=== PATIENT | female | born 1945 | race Caucasian/White ===

== ENCOUNTER 2017-08-11 16:25 | Inpatient (IN) | payer MEDICARE, SELFPAY | END 2017-08-14 11:10 | disposition home or self-care (01) | DRG 195 | PROVIDERS: Admitting Provider Family Medicine; Emergency Provider Emergency Medicine; Visit Provider Family Medicine | DX: J18.9 Pneumonia, unspecified organism (principal); I10 Essential (primary) hypertension | CPT/HCPCS: 36415; 71020; 71260; 74176; 80048; 80053; 81001; 82803; 83605; 83690; 83880; 84484; 85025; 85378; 87040; 87070; 87205; 94640; 94760; 96365; 96375; 99285; G0238; J0456; J1956; J2405; Q9967 ==

== ENCOUNTER → 2017-08-26 09:13 | Outpatient (CLI) | payer MEDICARE, SELFPAY ==
--- NOTE | 2017-08-26 09:25 | XR_ITS ---
XR chest 2V HISTORY: ITS.REASON: PNEUMONIA OF RT LOWER LOBE ORDERING PHYSICIAN: Lexx Barlow MD PATIENT AGE: 72 years COMPARISON: 08/11/2017 FINDINGS: Right hemidiaphragm is elevated as before. There remains consolidation/collapse of the right middle and right lower lobe. Left lower lobe atelectatic changes are also noted and appears slightly worse compared to the previous exam. Upper lobes are clear. There is moderate wedging of T7 with loss of height anteriorly of approximately 50%. Incidental vascular calcification noted in the right carotid. IMPRESSION: 1. Continued right lower and right middle lobe collapse with elevated right hemidiaphragm. 2. Left lower lobe atelectasis. 3. Moderate to severe wedge compression changes at T7
== END ==
PROVIDERS: PCP Family Medicine; Visit Provider Family Medicine
DX: J18.1 Lobar pneumonia, unspecified organism (principal)
CPT/HCPCS: 71046

== ENCOUNTER 2017-11-24 10:00 | Outpatient (RCR) | payer MEDICARE, SELFPAY | END 2017-11-24 10:01 | disposition home or self-care (01) | LOC: PT 10:00 | PROVIDERS: PCP Family Medicine | DX: M51.36 Other intervertebral disc degeneration, lumbar region (principal) | CPT/HCPCS: 97010; 97014; 97035; 97110; G0283 ==

== ENCOUNTER 2019-09-04 15:40 | Observation (INO) ==
--- NOTE | 2019-09-04 15:59 | Emergency Department Note ---
ED Disposition Clinical Impression: Acute exacerbation of chronic obstructive airways disease Acute respiratory failure Qualifiers: Respiratory failure complication: hypoxia and hypercapnia Qualified Code(s): J96.01 - Acute respiratory failure with hypoxia Disposition: Admitted As Inpatient Condition on Discharge: Fair Referrals: Provider,Referral, [Primary Care Provider] - - Critical Care Critical Care Time: No Attestation: On , the high probability of a clinically significant, sudden or life threatening deterioration of the following system(s) required my full and direct attention, intervention and personal management. The time I documented below is in addition to time spent performing reported procedures but includes the following listed in this critical care notation. Medical Decision Making - Medical Records Medical records reviewed: Yes: I reviewed the patient's medical records. - [place] Inquiry Pt receiving controlled substance: No Vital Signs: 09/04/19 15:51 Temperature 98.4 F Temperature Source Oral Pulse Rate [Right Radial] 90 Respiratory Rate 18 Blood Pressure [Right Arm] 157/83 H Blood Pressure Mean [Right Arm] 107 02 Sat by Pulse Oximetry 79 L Oxygen Delivery Method Room Air - Lab Data Lab Results 09/04/19 14:28: WBC 12.0 H D, RBC 5.08, Hgb 14.7, Hct 46.7, MCV 92.0, MCH 28.9, MCHC 31.4 L, RDW 13.3, Plt Count 207, MPV 7.2 L, Neut % (Auto) 87.5 H, Lymph % (Auto) 8.8 L, [place] % (Auto) 2.7, Eos % (Auto) 0.7, Baso % (Auto) 0.3, Neut # (Auto) 10.5 H, Lymph # (Auto) 1.1, [place] # (Auto) 0.3, Eos # (Auto) 0.1, Baso # (Auto) 0.0 09/04/19 14:28: Sodium 136, Potassium 4.3, Chloride 98, Carbon Dioxide 34 H, Anion Gap 8.3, BUN 19 H D, Creatinine 1.06 H D, Estimated Creat Clear 75, Estimated GFR 50 L, Est GFR ( Amer) 61 D, Glucose 190 H, Calcium 9.1 09/04/19 15:57: Specimen Source Right brachial, ABG pH 7.34 L, ABG pCO2 62.8 H, ABG pO2 50.1 L, ABG HCO3 33.4 H, ABG Total CO2 35.4 H, ABG O2 Saturation 86 L*, ABG Base Excess 7.7 H, Angel Test acceptable Result diagrams: 09/04/19 14:28 09/04/19 14:28 Orders (Tests/Meds): ORDERS Category Date Time Status Chest XR -- portable [XR chest portable] Stat Exams 09/04/19 16:01 Taken Complete Blood Count Auto Diff Stat Lab 09/04/19 14:28 Results - Radiology Data #1 Image(s): Chest Image Reviewed: Yes I reviewed the patient's radiology image Elevation of the right hemidiaphragm, possible pneumonia right lower lobe?, Atelectasis left lower lobe. This is per my read, radiology over read pending. Medical Decision Narrative: Patient is asymptomatic at this time with no shortness of breath. Her ABG does suggest some hypercarbia and hypoxia. She is placed on 2 L of oxygen. Her chest x-ray shows elevation of the right hemidiaphragm, possible right-sided pneumonia, though patient does not describe any recent illnesses or new cough or fever. She was already given Rocephin today in her doctor's office in addition to a steroid. She is wheezing on exam and I suspect acute COPD exacerbation on top of some chronic hypoxia and hypercarbia. She will need to be admitted for further investigation into her long-term oxygen requirements. I discussed this case with Dr. Moore, on-call for Dr. Barlow. General Adult HPI - General Stated complaint: Low oxygen Time Seen by Provider: 09/04/19 15:56 Mode of Arrival: Ambulatory Source of Information: Patient, Relative Limitations: No Limitations - History of Present Illness HPI narrative: This is a 74-year-old female with a past medical history significant for COPD, hypertension, HLD who presents to the emergency department for evaluation of low oxygen saturation measured at her doctor's office today. She was there having an evaluation for her H. pylori and has no acute respiratory complaints now including no new shortness of breath or cough and no fever over the last several days. No chest pain. She has abdominal pain that is not new and has been attributed to her H. pylori. She was evaluated here 3 days ago for abdominal pain with a negative work-up. She was not at her doctor's office today for any respiratory complaints, but during taking her vital signs it was found that she was 88% on room air. There she was given a nebulizer treatment which allowed her oxygen saturations to improve to 93%. Was also given a injection of Rocephin and a steroid. Patient and [id number] tell me that she has always had varying oxygen levels and cannot ever seem to get a consistent value. Patient states she used to be on oxygen several years ago, but it was only for short-term therapy. Speaking to nursing staff who saw her on Tuesday, they report the same that her oxygen saturation level would vary significantly and a reliable, consistent number was difficult to obtain. Patient is asymptomatic with no shortness of breath at this time. - Related Data Home Medications Medication Instructions Recorded Confirmed Amlodipine Besylate/Benazepril 1 each PO DAILY 09/02/19 09/02/19 [Amlodipine-Benazepril 10-20 mg] Previous Rx's Medication Instructions Recorded levoFLOXacin [Levaquin 500mg 500 mg PO DAILY #7 tab 09/02/19 tab] Allergies Allergy/AdvReac Type Severity Reaction Status Date / Time No Known Allergies Allergy Verified 09/04/19 15:58 [facility] History - Hepatitis A Screen Attestation statement:: This patient has been screened for Hepatitis A risk factors. I have reviewed the patient's past medical history: Yes Medical History: Reports:: Cancer (skin), Chronic Obstructive Pulmonary Disease (COPD), Hyperlipidemia, Hypertension - Social History Alcohol Intake: never Occupational Status: retired ROS Obtained: Yes All systems reviewed & no additional complaints Physical Exam - General General appearance: alert, in no apparent distress - Head Head exam: atraumatic, normocephalic - ENT ENT exam: Present: normal exam, mucous membranes moist - Neck Neck exam: Present: normal inspection, trachea midline - Respiratory Respiratory exam: Present: wheezes, other (Speaks in complete sentences, no tachypnea). Absent: respiratory distress - Cardiovascular Cardiovascular exam: Present: regular rate, normal rhythm. Absent: JVD - Abdominal Exam Abdominal exam: Present: soft. Absent: distention, tenderness - Neurological Exam Neurological exam: Present: alert, oriented X3 - Skin Skin exam: Present: warm, dry, intact, normal color
[2019-09-04 16:08] LABS: ABG Base Excess 7.7 mmol/L (-2.4-2.3); ABG HCO3 33.4 mmhg (22.0-26.0); ABG Oxygen Saturation 86 % (90-100); ABG PO2 50.1 mmhg (80-100); ABG TCO2 35.4 mmhg (23-27)
[2019-09-04 16:12] LABS: Allen's Test acceptable
[2019-09-04 16:14] LABS: ABG PCO2 62.8 mmhg (35.0-45.0)
[2019-09-04 16:39] LABS: Basophils % 0.3 % (0.1-2.0); Eosinophils # 0.1 K/mm3 (0.0-0.4); Eosinophils % 0.7 % (0.1-12.0); Hematocrit 46.7 % (37.0-47.0); Hemoglobin 14.7 g/dL (12.2-16.2); Lymphocytes # 1.1 K/mm3 (0.7-4.5); Lymphocytes % 8.8 % (10-50); Mean Corpuscular HGB Conc 31.4 g/dL (31.8-35.4); Mean Platelet Volume 7.2 fl (7.4-10.4); Monocytes # 0.3 K/mm3 (0.1-1.0); Monocytes % 2.7 % (1.7-9.3); Neutrophils # 10.5 K/mm3 (1.8-7.8); Neutrophils % 87.5 % (37.0-80.0); Platelet Count 207 K/mm3 (142-424); Red Blood Count 5.08 M/mm3 (4.20-5.40); Red Cell Distribution Width 13.3 % (11.5-17.5)
[2019-09-04 16:43] LABS: Anion Gap 8.3 mEq/L (5-15); Calcium 9.1 mg/dL (8.5-10.1)
[2019-09-04 17:28] LABS: Lymphocytes % 13 % (10-50); Monocytes % 5 % (2-9); Neutrophils % 82 % (42-76); RBC Morphology Normal; Total Cells Counted 100
[2019-09-05 06:46] LABS: ABG Base Excess 13.5 mmol/L (-2.4-2.3); ABG HCO3 38.9 mmhg (22.0-26.0); ABG Oxygen Saturation 95 % (90-100); ABG PH 7.36 mmol/L (7.35-7.45)
[2019-09-05 06:47] LABS: Oxygen 2LPM %
[2019-09-05 06:49] LABS: ABG PCO2 70.1 mmhg (35.0-45.0)
--- NOTE | 2019-09-05 07:11 | Pharmacy Consult Notes ---
[facility] Pharmacy VTE Monitoring - Patient Demographics Admission date: 09/04/19 Report Date: 09/05/19 Time: 07:10 Allergies/Adverse Reactions: Patient Allergies No Known Allergies Allergy (Verified 09/04/19 15:58) Height: 1.63 m Weight: 104.128 kg Patient Problems: Current Active Problems Acute respiratory failure (Acute) Acute exacerbation of chronic obstructive airways disease (Acute) - VTE Risk Labs: VTE Related Lab Results Hgb 14.7 g/dL (12.2-16.2) 09/04/19 14:28 Hct 46.7 % (37.0-47.0) 09/04/19 14:28 Plt Count 207 K/mm3 (142-424) 09/04/19 14:28 BUN 19 mg/dL (7-18) H D 09/04/19 14:28 Creatinine 1.06 mg/dL (0.55-1.02) H D 09/04/19 14:28 Estimated Creat Clear 75 mL/min (50-200) 09/04/19 14:28 - Prophylaxis VTE Prophylaxis Ordered?: Yes Types of VTE Prophylaxis: TEDS Knee High Location of Applied Device: Bilateral Lower Extremeties
--- NOTE | 2019-09-05 07:26 | H&P/Discharge Summary ---
General - General Admission date:: 09/04/19 Discharge date: 09/05/19 *Admission Date: 09/04/19 *Chief complaint: "I was sent here by my doctor" *History of present illness: 74-year-old female presented to the emergency department yesterday after being sent to our ER from her primary care physician in [facility]. Patient was seen in this emergency department on September 02 for abdomen and back pain. Patient apparently has a recent diagnosis of H. pylori. Evaluation in the emergency department revealed a urinary tract infection and patient was treated and discharged home. She followed up with her primary care physician located in [place], [place] yesterday. While visiting her primary care physician on routine vital sign assessment it was noted that patient was hypoxic. Patient has a diagnosis of COPD but quit smoking nearly 30 years ago. Patient was told she needed to go to an emergency department and possibly be admitted to the hospital but instead of going to the local hospital in [place] she chose to drive back here to [facility] as she currently lives in [place]. In the emergency department she was hypoxic and felt to be having a mild COPD exacerbation. Home oxygen was being arranged by her primary care provider in [place] but decision was made to admit her to this facility for treatment of COPD exacerbation. Patient was admitted and placed on IV antibiotics and stero ids [facility] History I have reviewed the patient's past medical history: Yes Medical History: Reports:: Cancer (skin), Chronic Obstructive Pulmonary Disease (COPD), Hyperlipidemia, Hypertension Denies:: Diabetes Mellitus Type 1, Diabetes Mellitus Type 2 *Have you ever received a pneumonia vaccine?: No *Have you received a flu vaccine this season?: No - *Social History Educational Level: Completed High School Smoking Status: Former smoker Alcohol Intake: never *Occupational Status:: retired *Travel in the last 8 weeks: None Family Hx:: No significant family history Review of Systems - Constitutional Denies body ache(s), Denies chills, Denies fatigue, Denies fever(s), Denies headache(s), Denies malaise, Denies night sweats, Denies weakness - *Cardiovascular Denies chest pain, Denies chest pain at rest, Denies chest pain with activity - *Respiratory Reports shortness of breath, Reports shortness of breath with activity, Denies chest congestion, Denies cough Exam Vital signs and Labs for Last 24 Hours: Temp Pulse Resp BP Pulse Ox 98.5 F 71 18 150/74 H 90 L 09/05/19 04:00 09/05/19 04:00 09/05/19 04:00 09/05/19 04:00 09/05/19 04:00 Laboratory Results - last 24 hr 09/04/19 14:28: WBC 12.0 H D, RBC 5.08, Hgb 14.7, Hct 46.7, MCV 92.0, MCH 28.9, MCHC 31.4 L, RDW 13.3, Plt Count 207, MPV 7.2 L, Neut % (Auto) 87.5 H, Lymph % (Auto) 8.8 L, [place] % (Auto) 2.7, Eos % (Auto) 0.7, Baso % (Auto) 0.3, Neut # (Au to) 10.5 H, Lymph # (Auto) 1.1, [place] # (Auto) 0.3, Eos # (Auto) 0.1, Baso # (Auto) 0.0, Total Counted 100, Neutrophils % (Manual) 82 H, Lymphocytes % (Manual) 13, Monocytes % (Manual) 5, Platelet Estimate Normal, RBC Morphology Normal 09/04/19 14:28: Sodium 136, Potassium 4.3, Chloride 98, Carbon Dioxide 34 H, A nion Gap 8.3, BUN 19 H D, Creatinine 1.06 H D, Estimated Creat Clear 75, Estimated GFR 50 L, Est GFR ( Amer) 61 D, Glucose 190 H, Calcium 9.1 09/04/19 15:57: Specimen Source Right brachial, ABG pH 7.34 L, ABG pCO2 62.8 H, ABG pO2 50.1 L, ABG HCO3 33.4 H, ABG Total CO2 35.4 H, ABG O2 Saturation 86 L*, ABG Base Excess 7.7 H, Angel Test acceptable 09/05/19 06:00: Specimen Source R brachial, O2 % 2lpm, ABG pH 7.36, ABG pCO2 70.1 H, ABG pO2 77.0 L, ABG HCO3 38.9 H, ABG Total CO2 41.0 H, ABG O2 Saturation 95, ABG Base Excess 13.5 H I & O for Last 24 hours: Intake & Output 0109/03/19 09/04/19 09/05/19 11:59 11:59 11:59 11:59 Intake Total 120 / 120 Output Total 200 / 200 Balance -80 / -80 Weight 229 lb 9 oz - Constitutional no acute distress - *Routine HEENT Exam Head: Present: normocephalic Eye: Present: EOMI, PERRL ENT: Present: mucous membranes moist - *Routine Neck Exam Present: supple, full ROM. Absent: JVD, carotid bruit - *Routine Respiratory Exam Present: CTA bilaterally. Absent: rales, respiratory distress, rhonchi, wheezes, crackles, distant breath sounds, diminished air movement - *Routine Cardiovascular Exam Present: RRR, Normal S1, Normal S2 - *Routine Abdominal Exam Present: soft, normoactive bowel sounds. Absent: tenderness - *Routine Extremities Exam Absent: edema Hospital Course Hospital Course: Patient was admitted and placed on IV antibiotics and steroids and given aerosols. Supplemental oxygen was applied as well. Patient's room air oxygen sats were in the 80s while at rest. With application of oxygen at 2 L/min via nasal cannula patient's O2 sats remained in the 90s. Following morning (September 05) patient's lungs were clear. As patient was already in process of having home oxygen arranged it was felt safe to discharge the patient home. Once it was assured that patient's oxygen has been delivered home patient was allowed to be discharged. Patient will follow-up in my office on Tuesday. Results Labs on day of discharge: Labs from last 24 hours 09/05/19 09/04/19 09/04/19 06:00 15:57 14:28 WBC RBC Hgb Hct MCV MCH MCHC RDW Plt Count MPV Neut % (Auto) Lymph % (Auto) [place] % (Auto) Eos % (Auto) Baso % (Auto) Neut # (Auto) Lymph # (Auto) [place] # (Auto) Eos # (Auto) Baso # (Auto) Total Counted Neutrophils % (Manual) Lymphocytes % (Manual) Monocytes % (Manual) Platelet Estimate RBC Morphology Specimen Source R brachial Right brachial O2 % 2lpm ABG pH 7.36 7.34 L ABG pCO2 70.1 H 62.8 H ABG pO2 77.0 L 50.1 L ABG HCO3 38.9 H 33.4 H ABG Total CO2 41.0 H 35.4 H ABG O2 Saturation 95 86 L* ABG Base Excess 13.5 H 7.7 H Angel Test acceptable Sodium 136 Potassium 4.3 Chloride 98 Carbon Dioxide 34 H Anion Gap 8.3 BUN 19 H D Creatinine 1.06 H D Estimated Creat Clear 75 Estimated GFR 50 L Est GFR ( Amer) 61 D Glucose 190 H Calcium 9.1 09/04/19 14:28 WBC 12.0 H D RBC 5.08 Hgb 14.7 Hct 46.7 MCV 92.0 MCH 28.9 MCHC 31.4 L RDW 13.3 Plt Count 207 MPV 7.2 L Neut % (Auto) 87.5 H Lymph % (Auto) 8.8 L [place] % (Auto) 2.7 Eos % (Auto) 0.7 Baso % (Auto) 0.3 Neut # (Auto) 10.5 H Lymph # (Auto) 1.1 [place] # (Auto) 0.3 Eos # (Auto) 0.1 Baso # (Auto) 0.0 Total Counted 100 Neutrophils % (Manual) 82 H Lymphocytes % (Manual) 13 Monocytes % (Manual) 5 Platelet Estimate Normal RBC Morphology Normal Specimen Source O2 % ABG pH ABG pCO2 ABG pO2 ABG HCO3 ABG Total CO2 ABG O2 Saturation ABG Base Excess Angel Test Sodium Potassium Chloride Carbon Dioxide Anion Gap BUN Creatinine Estimated Creat Clear Estimated GFR Est GFR ( Amer) Glucose Calcium DS: Diagnosis - Discharge Diagnosis (1) Acute exacerbation of chronic obstructive airways disease Status: Acute Discharge Plan - Patient Discharge Instructions ACTIVITY: Continue current activity DIET: continue same diet Patient Instructions: Chronic Obstructive Pulmonary Disease, Respiratory Failure - Follow up Plan Follow up with: Lexx Barlow MD [Staff Physician] - 09/07/19 11:00 am Disposition: Home, Self-[facility] Medications: Home Medications Medication Instructions Recorded Confirmed Type Amlodipine Besylate/Benazepril 1 each PO DAILY 09/04/19 09/04/19 History [Lotrel 10-20 mg Capsule] Budesonide/Formoterol Fumarate 2 puffs IH BID 09/04/19 09/04/19 History [Symbicort 80-4.5 Mcg Inhaler] Meloxicam 7.5 mg PO DAILY 09/04/19 09/04/19 History methylPREDNISolone [Medrol] 4 mg PO DIRECTED #21 pack 09/05/19 Rx Prescriptions/Medication Reconciliation: New methylPREDNISolone [Medrol] 4 mg PO DIRECTED #21 pack Continued Meloxicam 7.5 mg PO DAILY Budesonide/Formoterol Fumarate [Symbicort 80-4.5 Mcg Inhaler] 2 puffs IH BID Amlodipine Besylate/Benazepril [Lotrel 10-20 mg Capsule] 1 each PO DAILY - Problem Reconciliation Problems Reviewed?: Yes
[2019-09-05 07:54] LABS: ABG PH 7.34 mmol/L (7.35-7.45)
== END 2019-09-05 12:46 | disposition home or self-care (01) ==
LOC: ER 15:40 → 2ND 15:40
PROVIDERS: ADMIT Internal Medicine Adolescent Medicine; ATTEND Family Medicine
CPT/HCPCS: 71010; 71045; 80048; 82803; 85007; 85025; 94761; 99284; G0378

== ENCOUNTER → 2020-02-06 10:52 | Outpatient (CLI) | payer MEDICARE, MEDICAID, SELFPAY | PROVIDERS: PCP Family Medicine; Visit Provider Family Medicine | DX: R06.00 Dyspnea, unspecified (principal); R06.01 Orthopnea; R22.43 Localized swelling, mass and lump, lower limb, bilateral; I10 Essential (primary) hypertension | CPT/HCPCS: 93306 ==

== ENCOUNTER 2020-07-31 13:30 | Emergency (ER) | payer MEDICARE, MEDICAID, SELFPAY ==
[2020-07-31 14:00] VITALS: BP 166/75; PULSE 82; RESP 14; TEMP 36.7; O2SAT 98; BMI 42.1
--- NOTE | 2020-07-31 14:21 | HMH.EDUTC ---
[facility] Disposition Clinical Impression: COPD exacerbation, Exposure to COVID-19 virus, Viral syndrome Disposition: Home, Self-Care Condition on Discharge: Good Instructions: Chronic Obstructive Pulmonary Disease, Preventing the Spread of Coronavirus Discharge Instructions Additional Instructions: Drink plenty of fluids. Take tylenol for pain or fever. Return if you begin to have difficulty breathing. Follow up with your regular doctor. GO TO THE ER FOR ANY WORSENING SYMPTOMS Prescriptions: Benzonatate [Tessalon Perle 100mg Cap] 100 mg PO TIDP PRN #30 cap PRN Reason: Cough Transmission Status[id number] Azithromycin [Z-Matheus 250mg Tab*] 250 mg PO UD DOSE PK #6 tab Transmission Status: Received by [id number] Referrals: Lexx Barlow MD [Primary Care Provider] - Time of Disposition: 14:23 Medical Decision Making - Medical Records Medical records reviewed: No: I reviewed the patient's medical records. - [place] Inquiry Pt receiving controlled substance: No Vital Signs: 07/31/20 14:00 07/31/20 14:36 Temperature 98.1 F 98.1 F Temperature Source Oral Pulse Rate 82 Pulse Rate [Right Brachial] 82 Respiratory Rate 14 14 Blood Pressure 166/75 H Blood Pressure [Right Arm] 166/75 H Blood Pressure Mean [Right Arm] 105 Blood Pressure Source [Right Arm] Automatic Cuff Blood Pressure Position [Right Arm] Sitting 02 Sat by Pulse Oximetry 98 Oxygen Delivery Method Nasal Cannula Oxygen Flow Rate (LPM) 3 Orders (Tests/Meds): ORDERS Category Date Time Status Covid-19 Nasal PCR Sendout Luis Routine Lab 07/31/20 13:55 Received [facility] HPI - General Stated complaint: covid test Time Seen by Provider: 07/31/20 14:21 Mode of Arrival: Ambulatory Source of Information: Patient Limitations: No Limitations Description of Symptoms (Recalled from Triage Doc. by RN): PATIENT REQUESTING COVID TEST D/T EXPOSURE; C/O INCREASE SOA. HEENT Symptoms (Recalled from RN notes): No Resp Symptoms (Recalled from RN notes): Yes Skin Symptoms (Recalled from RN notes): No MS Symptoms (Recalled from RN notes): No Functional Status (Recalled from RN notes): WNL - History of Present Illness Provider Complaint: She has been having slightly worse shortness of breath and cough. She has a history of copd. She is on oxygen around the clock at 2 lpm already. - Related Data Home Medications Medication Instructions Recorded Confirmed Amlodipine Besylate/Benazepril 1 each PO DAILY 09/04/19 09/04/19 [Lotrel 10-20 mg Capsule] Budesonide/Formoterol Fumarate 2 puffs IH BID 09/04/19 09/04/19 [Symbicort 80-4.5 Mcg Inhaler] Meloxicam 7.5 mg PO DAILY 09/04/19 09/04/19 Previous Rx's Medication Instructions Recorded methylPREDNISolone [Medrol] 4 mg PO DIRECTED #21 pack 09/05/19 Azithromycin [Z-Matheus 250mg Tab*] 250 mg PO UD DOSE PK #6 tab 07/31/20 Benzonatate [Tessalon Perle 100mg 100 mg PO TIDP PRN #30 cap 07/31/20 Cap] Allergies Allergy/AdvReac Type Severity Reaction Status Date / Time No Known Allergies Allergy Verified 09/04/19 15:58 - Worker's Comp Is this a Worker's Comp case?: No [facility] History - Hepatitis A Screen Drug use history?: No High risk sexual behaviors?: No History of sexually transmitted infection?: No Currently employed?: No Childcare worker?: No Do you have indoor plumbing?: Yes Do you have electricity?: Yes Attestation statement:: This patient has been screened for Hepatitis A risk factors. I have reviewed the patient's past medical history: Yes Medical History: Reports:: Cancer (skin), Chronic Obstructive Pulmonary Disease (COPD), Hyperlipidemia, Hypertension Denies:: Diabetes Mellitus Type 1, Diabetes Mellitus Type 2 - Social History Smoking Status: Former smoker Alcohol Intake: never Occupational Status: other Family Hx:: No significant family history ROS Obtained: Yes All systems reviewed & no additional complaints
[2020-07-31 14:36] VITALS: BP 166/75; PULSE 82; RESP 14; TEMP 36.7; O2SAT 98
[2020-08-02 11:29] LABS: Covid-19 Nasal PCR Sendout Lex POSITIVE
--- NOTE | 2020-08-02 11:40 | PC.NURSE ---
Attempted to call patient with covid results. No answer and no voicemail.
== END 2020-07-31 14:45 | disposition home or self-care (01) ==
PROVIDERS: Emergency Provider Nurse Practitioner Family; PCP Family Medicine
DX: U07.1 COVID-19 (principal); J44.1 Chronic obstructive pulmonary disease with (acute) exacerbation; Z99.81 Dependence on supplemental oxygen; E78.5 Hyperlipidemia, unspecified; I10 Essential (primary) hypertension; Z87.891 Personal history of nicotine dependence; Z79.899 Other long term (current) drug therapy
CPT/HCPCS: G0463; 99201; U0004

== ENCOUNTER 2020-08-04 15:20 | Emergency (ER) | payer MEDICARE, MEDICAID, SELFPAY ==
[2020-08-04 15:21] VITALS: BP 166/69; PULSE 74; RESP 22; TEMP 36.6; O2SAT 95; BMI 44.9
--- NOTE | 2020-08-04 15:44 | XR_ITS ---
PROCEDURE: XR CHEST PORTABLE CLINICAL HISTORY: soa Cough, fever, shortness of air COMPARISON: CR CXR CHEST(2 VIEWS-NOT PORTABLE) from 08/11/[address] [address] CHEST W/ CONTRAST from 08/12/2017 CR CXR2V XR chest 2V from 08/26/2017 CR XR CHEST PORTABLE from 09/04/2019 FINDINGS: Right hemidiaphragm is elevated with right basilar atelectasis. Left basilar atelectasis and/or infiltrate noted. Upper lobes are clear. Normal heart size. IMPRESSION: Elevated right hemidiaphragm with right basilar atelectasis unchanged Left lower lobe consolidation and/or atelectatic change Dictated by: Angel Cowart MD 08/04/2020 16:05 Angel Cowart MD in [place] 08/04/2020 16:05
--- NOTE | 2020-08-04 15:59 | HMH.EDGENADL ---
ED Disposition Clinical Impression: Community acquired pneumonia Qualifiers: Laterality: left Lung location: lower lobe of lung Qualified Code(s): J18.9 - Pneumonia, unspecified organism Disposition: Home, Self-Care Condition on Discharge: Good Instructions: Pneumonia-Adult Prescriptions: Azithromycin 250 mg PO DAILY #5 tab Prescription Printed Referrals: Lexx Barlow MD [Primary Care Provider] - - Critical Care Critical Care Time: No Attestation: On 08/04/20, the high probability of a clinically significant, sudden or life threatening deterioration of the following system(s) required my full and direct attention, intervention and personal management. The time I documented below is in addition to time spent performing reported procedures but includes the following listed in this critical care notation. Medical Decision Making - Medical Records Medical records reviewed: Yes: I reviewed the patient's medical records. - [place] Inquiry Pt receiving controlled substance: No Vital Signs: 08/04/20 15:21 08/04/20 17:51 08/04/20 18:17 Temperature 97.9 F Temperature Source Oral Pulse Rate [Left Radial] 74 60 77 Respiratory Rate 22 16 Blood Pressure [Right Arm] 166/69 H 166/69 H 159/68 H Blood Pressure Mean [Right Arm] 101 101 98 Blood Pressure Source [Right Arm] Automatic Cuff Automatic Cuff Automatic Cuff Blood Pressure Position [Right Arm] Sitting Sitting Sitting 02 Sat by Pulse Oximetry 95 96 90 L Oxygen Delivery Method Nasal Cannula Nasal Cannula Oxygen Flow Rate (LPM) 3 - Lab Data Lab Results 08/04/20 15:49: WBC 5.6, RBC 4.35, Hgb 12.8, Hct 40.5, MCV 93.1, MCH 29.3, MCHC 31.5 L, RDW 13.7, Plt Count 197, MPV 7.9, Neut % (Auto) 53.6, Lymph % (Auto) 34.4, [place] % (Auto) 5.6, Eos % (Auto) 5.0, Baso % (Auto) 1.5, Neut # (Auto) 3.0, Lymph # (Auto) 1.9, [place] # (Auto) 0.3, Eos # (Auto) 0.3, Baso # (Auto) 0.1 08/04/20 15:49: Sodium 140, Potassium 5.1, Chloride 92 L, Carbon Dioxide 41 H*, Anion Gap 12.1, BUN 26 H, Creatinine 0.90, Estimated Creat Clear 36, Estimated GFR 61, Est GFR ( Amer) 73, Glucose 155 H, Calcium 9.8 08/04/20 15:49: Lactate 1.5 Result diagrams: 08/04/20 15:49 08/04/20 15:49 Orders (Tests/Meds): ED MEDICATIONS Generic Name Dose Route Start Last Admin Trade Name Freq PRN Reason Stop Dose Admin Azithromycin 500 mg/ Sodium 250 mls @ 250 mls/hr 08/04/20 17:30 08/04/20 17:55 Chloride IV 08/18/20 17:29 250 mls/hr Q24H CHRISSIE Administration Protocol Ceftriaxone Sodium 1 gm/ 50 mls @ 100 mls/hr 08/04/20 17:30 08/04/20 17:56 Sodium Chloride IV 08/18/20 17:29 100 mls/hr Q24H CHRISSIE Administration Protocol Discontinued Medications Generic Name Dose Route Start Last Admin Trade Name Freq PRN Reason Stop Dose Admin Methylprednisolone Sodium Succinate 125 mg 08/04/20 17:25 08/04/20 17:55 Methylprednisolone Sod Succ 125mg Vial IV 08/04/20 17:26 125 mg ONCE ONE Administration ORDERS Category Date Time Status Blood Culture Stat Micro 08/04/20 15:44 Received Medical Decision Narrative: The patient is a 75 year old female with a history of COPD and known COVID-19 who presents with shortness of breath. On arrival she is satting 95% on her home 3L. Lungs are clear. Denies chest pain. Labs including CBC, BMP were ordered as well as CXR. CXR shows possible consolidation in LLL. Labs otherwise unremarkable. Discussed with patient inpatient admission versus discharge. Patient feels she is able to complete ADLs at home without extreme shortness of breath. She and her son feel safe with her going home. I discussed that she is high risk with her COPD and age and she that she needed to come back immediately with even the slightest worsening. She conveys understanding. She was treated with ceftriaxone 1 g and 500 mg azithromycin IV for CAP. Will dc home with azithromycin. General Adult HPI - General Chief complaint: Shortness of Breath/Dy
[2020-08-04 16:01] LABS: Basophils # 0.1 K/mm3 (0-0.2); Basophils % 1.5 % (0.1-2.0); Eosinophils # 0.3 K/mm3 (0.0-0.4); Hematocrit 40.5 % (37.0-47.0); Hemoglobin 12.8 g/dL (12.2-16.2); Lymphocytes # 1.9 K/mm3 (0.7-4.5); Lymphocytes % 34.4 % (10-50); Mean Corpuscular HGB Conc 31.5 g/dL (31.8-35.4); Mean Corpuscular Hemoglobin 29.3 pg (27.0-31.2); Mean Corpuscular Volume 93.1 fl (81-99); Mean Platelet Volume 7.9 fl (7.4-10.4); Monocytes # 0.3 K/mm3 (0.1-1.0); Monocytes % 5.6 % (1.7-9.3); Neutrophils % 53.6 % (37.0-80.0); Platelet Count 197 K/mm3 (142-424); Red Blood Count 4.35 M/mm3 (4.20-5.40); Red Cell Distribution Width 13.7 % (11.5-17.5); White Blood Count 5.6 K/mm3 (4.8-10.8)
[2020-08-04 16:10] LABS: Lactic Acid 1.5 mmol/L (0.7-2.1)
[2020-08-04 16:11] LABS: Blood Urea Nitrogen 26 mg/dl (7-17); Calcium 9.8 mg/dl (8.4-10.2); Chloride 92 mmol/L (98-107); Creatinine Clearance Estimated 36 mL/min (50-200); Estimated Glomerular Filt Rate 61 ml/min (>60); GFR (African American) 73 ML/MIN (>60); Glucose 155 mg/dl (74-100); Potassium 5.1 mmoL/L (3.5-5.1); Sodium 140 mmol/L (136-145)
[2020-08-04 16:19] LABS: Anion Gap 12.1 mEq/L (5-15); Carbon Dioxide 41 mmol/L (22.0-30.0)
--- NOTE | 2020-08-04 17:26 | ECG_ITS ---
APPROVED REPORT Exam: Resting ECG HR:72 bpm ECG Measurements Heart Rate 72 AXES WI 190 P 36 QRSd 82 QRS -5 QT 376 T 40 QTc 411 Conclusion Normal sinus rhythm Septal infarct, age undetermined Abnormal ECG Electronically signed by : Lexx Moore, 08/05/2020 08:53:31
[2020-08-04 17:51] VITALS: BP 166/69; PULSE 60; RESP 16; O2SAT 96
[2020-08-04 18:17] VITALS: BP 159/68; PULSE 77; O2SAT 90
[2020-08-04 18:54] VITALS: BP 136/64; PULSE 74; RESP 21; TEMP 36.6; O2SAT 100
== END 2020-08-04 19:07 | disposition home or self-care (01) ==
PROVIDERS: Emergency Provider Emergency Medicine; PCP Family Medicine
DX: U07.1 COVID-19 (principal); J18.9 Pneumonia, unspecified organism; J44.9 Chronic obstructive pulmonary disease, unspecified; Z87.891 Personal history of nicotine dependence
CPT/HCPCS: 71045; 80048; 83605; 85025; 87040; 93005; 96365; 96375; 99284; J0456

== ENCOUNTER 2020-08-30 15:38 | Inpatient (IN) | payer MEDICARE, MEDICAID, SELFPAY ==
[2020-08-30] VITALS (9 sets, daily range): BP systolic 130–143; BP diastolic 55–74; PULSE 80–98; RESP 15–26; TEMP 36.6–36.8; O2SAT 86–93; BMI 40.8; BMI 39.9
--- NOTE | 2020-08-30 15:49 | XR_ITS ---
PROCEDURE: XR CHEST PORTABLE CLINICAL HISTORY: short of breath COMPARISON: CT CHW CT CHEST W/ CONTRAST from 08/12/2017 CR CXR2V XR chest 2V from 08/26/2017 CR XR CHEST PORTABLE from 09/04/2019 CR XR CHEST PORTABLE from 08/04/[address] ANGIO CHEST from 08/30/2020 FINDINGS: There is elevation of the right hemidiaphragm. Bilateral airspace disease noted in the left mid lower lung zone and in the right mid lower lung zone. Atelectatic changes also present. No acute bony abnormalities. IMPRESSION: Bilateral pneumonia Dictated by: Angel Cowart MD 08/30/2020 19:56 Angel Cowart MD in [place] 08/30/2020 19:56
--- NOTE | 2020-08-30 15:51 | HMH.EDGENADL ---
ED Disposition Clinical Impression: COPD exacerbation Respiratory failure Qualifiers: Chronicity: acute on chronic Respiratory failure complication: hypoxia and hypercapnia Qualified Code(s): J96.21 - Acute and chronic respiratory failure with hypoxia Disposition: Admitted As Inpatient Condition on Discharge: Fair Time of Disposition: 18:13 - Critical Care Critical Care Time: Yes Attestation: On , the high probability of a clinically significant, sudden or life threatening deterioration of the following system(s) required my full and direct attention, intervention and personal management. The time I documented below is in addition to time spent performing reported procedures but includes the following listed in this critical care notation. Total Critical Care Time: 36 Vital system(s) involved:: Respiratory Failure My critical care processes included: Assessment & monitoring of V/S, Initial and Re-exams, Data Review/Interpretation, Coordinating Care, Medication Orders and management, Documentation Medical Decision Making - Medical Records Medical records reviewed: Yes: I reviewed the patient's medical records. - [place] Inquiry Pt receiving controlled substance: No Vital Signs: 08/30/20 15:40 08/30/20 17:01 08/30/20 18:30 Temperature 98.2 F Temperature Source Oral Pulse Rate [Apical] 80 81 96 H Respiratory Rate 26 H 26 H Blood Pressure [Right Arm] 136/55 L 137/62 130/58 L Blood Pressure Mean [Right Arm] 82 87 82 Blood Pressure Source [Right Arm] Automatic Cuff Automatic Cuff Automatic Cuff Blood Pressure Position [Right Arm] Sitting Sitting Sitting 02 Sat by Pulse Oximetry 93 L 93 L 90 L Oxygen Delivery Method Nasal Cannula Nasal Cannula Nasal Cannula Oxygen Flow Rate (LPM) 4 4 4 - Lab Data Lab Results 08/30/20 15:48: VBG pH 7.41, VBG pCO2 77.9 H, VBG pO2 40.4 H, VBG HCO3 48.4 H, VBG Total CO2 50.8 H, VBG O2 Saturation 80.0 H, VBG Base Excess 23.8 H 08/30/20 15:54: WBC 10.2, RBC 3.89 L, Hgb 11.2 L, Hct 36.8 L, MCV 94.6, MCH 28.8, MCHC 30.4 L, RDW 14.2, Plt Count 273, MPV 7.6, Neut % (Auto) 74.0, Lymph % (Auto) 17.2, [place] % (Auto) 5.9, Eos % (Auto) 2.2, Baso % (Auto) 0.8, Neut # (Auto) 7.5, Lymph # (Auto) 1.8, [place] # (Auto) 0.6, Eos # (Auto) 0.2, Baso # (Auto) 0.1 08/30/20 15:54: Sodium 139, Potassium 4.7, Chloride 86 L, Carbon Dioxide 50 H*, Anion Gap 7.7, BUN 24 H, Creatinine 0.90, Estimated GFR 61, Est GFR ( Amer) 73, Glucose 137 H, Calcium 9.9, Total Bilirubin 0.6, AST 32, ALT 16, Alkaline Phosphatase 88, Troponin I < 0.01, Total Protein 8.2, Albumin 3.7, Globulin 4.5 H, Albumin/Globulin Ratio 0.8 L 08/30/20 15:54: D-Dimer 1.09 H 08/30/20 15:54: Ferritin 304 H, Procalcitonin 0.147 08/30/20 15:54: SARS-CoV-2 IgG Ab (Rapid) Positive A, SARS-CoV-2 IgM Ab (Rapid) Negative 08/30/20 15:54: NT-Pro-B Natriuret Pep 164 Result diagrams: 08/30/20 15:54 08/30/20 15:54 Orders (Tests/Meds): ED MEDICATIONS Generic Name Dose Route Start Last Admin Trade Name Freq PRN Reason Stop Dose Admin Ceftriaxone Sodium 1 gm/ 50 mls @ 100 mls/hr 08/30/20 17:45 08/30/20 18:10 Sodium Chloride IV 09/13/20 17:44 100 mls/hr Q24H CHRISSIE Administration Protocol Azithromycin 500 mg/ Sodium 250 mls @ 250 mls/hr 08/30/20 17:45 08/30/20 18:09 Chloride IV 09/13/20 17:44 250 mls/hr Q24H CHRISSIE Administration Protocol Discontinued Medications Generic Name Dose Route Start Last Admin Trade Name Freq PRN Reason Stop Dose Admin Albuterol/Ipratropium 3 ml 08/30/20 17:40 Albuterol/Ipratropium 3 Ml Neb IH 08/30/20 17:41 ONCE ONE Iopamidol 70 ml 08/30/20 17:27 08/30/20 17:28 Iopamidol-370 (76%);100ml Bottle IV 08/30/20 17:28 70 ml ONCE ONE Administration Methylprednisolone Sodium Succinate 125 mg 08/30/20 17:39 08/30/20 18:09 Methylprednisolone Sod Succ 125mg Vial IV 08/30/20 17:40 125 mg ONCE ONE Administration Sodium Chloride 40 ml 08/30/20 17:27 08/30/20 17:
[2020-08-30 16:11] LABS: Basophils # 0.1 K/mm3 (0-0.2); Basophils % 0.8 % (0.1-2.0); Eosinophils # 0.2 K/mm3 (0.0-0.4); Eosinophils % 2.2 % (0.1-12.0); Hematocrit 36.8 % (37.0-47.0); Hemoglobin 11.2 g/dL (12.2-16.2); Lymphocytes # 1.8 K/mm3 (0.7-4.5); Lymphocytes % 17.2 % (10-50); Mean Corpuscular HGB Conc 30.4 g/dL (31.8-35.4); Mean Corpuscular Hemoglobin 28.8 pg (27.0-31.2); Mean Corpuscular Volume 94.6 fl (81-99); Mean Platelet Volume 7.6 fl (7.4-10.4); Monocytes # 0.6 K/mm3 (0.1-1.0); Monocytes % 5.9 % (1.7-9.3); Neutrophils # 7.5 K/mm3 (1.8-7.8); Platelet Count 273 K/mm3 (142-424); Red Blood Count 3.89 M/mm3 (4.20-5.40); Red Cell Distribution Width 14.2 % (11.5-17.5); White Blood Count 10.2 K/mm3 (4.8-10.8)
[2020-08-30 16:15] LABS: Alanine Aminotransferase 16 U/L (12-78); Albumin Level 3.7 g/dl (3.5-5.0); Albumin/Globulin Ratio 0.8 (1.1-1.8); Alkaline Phosphatase 88 U/L (38-126); Aspartate Amino Transferase 32 U/L (14-36); Bilirubin,Total 0.6 mg/dl (0.2-1.3); Blood Urea Nitrogen 24 mg/dl (7-17); Calcium 9.9 mg/dl (8.4-10.2); Chloride 86 mmol/L (98-107); Estimated Glomerular Filt Rate 61 ml/min (>60); GFR (African American) 73 ML/MIN (>60); Globulin 4.5 g/dL (1.3-3.2); Glucose 137 mg/dl (74-100); Potassium 4.7 mmoL/L (3.5-5.1); Sodium 139 mmol/L (136-145); Total Protein,Serum 8.2 g/dl (6.3-8.2)
[2020-08-30 16:20] LABS: D-Dimer 1.09 ug/mL (0.0-0.5)
--- NOTE | 2020-08-30 16:22 | PC.NURSE ---
Rad at bedside
[2020-08-30 16:26] LABS: NT Pro Brain Natriuretic Pep. 164 pg/mL (0-450)
[2020-08-30 16:27] LABS: Anion Gap 7.7 mEq/L (5-15); Carbon Dioxide 50 mmol/L (22.0-30.0)
--- NOTE | 2020-08-30 16:29 | PC.NURSE ---
notified RT of vbg order
[2020-08-30 16:31] LABS: Troponin I < 0.01 ng/ml (0.00-0.034)
--- NOTE | 2020-08-30 16:33 | CT_ITS ---
PROCEDURE: CT ANGIO CHEST CLINCIAL INDICATION: short of breath, elevated d-dimer COMPARISON: CT CHW CT CHEST W/ CONTRAST from 08/12/2017 TECHNIQUE: IV Contrast: 70ML Isovue 370 Axial images obtained with sagittal and coronal reformats. All CT scans at the facility use one or more dose reduction, viz: automated exposure control, ma/kV adjustment per patient size (including targeted exams where dose is matched to indication, i.e. head), or iterative reconstruction technique. FINDINGS: The right hemidiaphragm is elevated with atelectatic changes in the right lower lobe. No evidence of aortic aneurysm dissection or pulmonary embolus. There is multi segmental dense consolidation without effusion with atelectatic changes in the right lower lobe. Chronic wedge compression changes are present at T7.. IMPRESSION: Multifocal pneumonia. Covid19 is a consideration No evidence of pulmonary embolus or aortic aneurysm or dissection Dictated by: Angel Cowart MD 08/30/2020 21:07 Angel Cowart MD in [place] 08/30/2020 21:07
[2020-08-30 16:35] LABS: Coronavirus 19 IgG Antibody Positive (Negative); Coronavirus 19 IgM Antibody Negative (Negative)
[2020-08-30 17:04] LABS: VBG Base Excess 23.8 mmol/L (-2.4-2.3); VBG HCO3 48.4 mmol/L (23-30); VBG PH 7.41 mmol/L (7.31-7.41); VBG PO2 40.4 mmol/L (28-40); VBG Total CO2 50.8 mmol/L (23-27)
--- NOTE | 2020-08-30 17:04 | PC.NURSE ---
Pt going to rad
[2020-08-30 17:05] LABS: VBG PCO2 77.9 mmol/L (35-51)
--- NOTE | 2020-08-30 17:05 | PC.NURSE ---
pt to CT
--- NOTE | 2020-08-30 17:06 | PC.NURSE ---
notified ER of CO2 of vbg of 75
[2020-08-30 17:11] LABS: Ferritin 304 ng/ml (11.1-264)
[2020-08-30 17:22] LABS: Procalcitonin 0.147 ng/mL (0.0-2.0)
--- NOTE | 2020-08-30 18:47 | PC.NURSE ---
notified ER MD pt SaO2 89% on 4L per NC, ER MD states pt home goal is 90% on oxygen, no new orders received at this time. Will continue to monitor.
--- NOTE | 2020-08-30 18:52 | PC.NURSE ---
report given to saulrn
--- NOTE | 2020-08-30 18:59 | PC.NURSE ---
Lab at bedside
--- NOTE | 2020-08-30 19:17 | PC.NURSE ---
notified ANNA CARDOZO that pt family is requesting that we request pt get set up for a BSC at d/c. ANNA CARDOZO states to place a care management consult for this.
--- NOTE | 2020-08-30 19:19 | PC.NURSE ---
report given to tay maldonado while waiting on restaurant shift leader on second floor to come and transport pt to second floor.
[2020-08-30 19:48] LABS: Troponin I < 0.01 ng/ml (0.00-0.034)
--- NOTE | 2020-08-30 20:07 | PC.NURSE ---
patient to the floor at this time.
--- NOTE | 2020-08-30 20:12 | PC.NURSE ---
patient up to floor via wheelchair.
[2020-08-30 21:29] LABS: POC Glucose,Bedside 294 (70-110)
[2020-08-31] VITALS (8 sets, daily range): BP systolic 121–149; BP diastolic 59–81; PULSE 71–89; RESP 20–22; TEMP 36.4–36.7; O2SAT 86–93
--- NOTE | 2020-08-31 05:02 | PC.NURSE ---
no acute changes since prior assessment, pt has remained in the chair, on 5L NC with O2 sats 90-91%, HR 87-98, no complaints of chest pain or SOA
[2020-08-31 06:18] LABS: POC Glucose,Bedside 159 (70-110)
[2020-08-31 07:33] LABS: Basophils % 0.1 % (0.1-2.0); Eosinophils % 0.1 % (0.1-12.0); Hematocrit 37.6 % (37.0-47.0); Hemoglobin 11.5 g/dL (12.2-16.2); Lymphocytes % 12.4 % (10-50); Mean Corpuscular HGB Conc 30.5 g/dL (31.8-35.4); Mean Corpuscular Hemoglobin 29.1 pg (27.0-31.2); Mean Corpuscular Volume 95.4 fl (81-99); Monocytes # 0.2 K/mm3 (0.1-1.0); Monocytes % 1.9 % (1.7-9.3); Neutrophils % 85.5 % (37.0-80.0); Platelet Count 273 K/mm3 (142-424); Red Blood Count 3.94 M/mm3 (4.20-5.40); White Blood Count 8.1 K/mm3 (4.8-10.8)
[2020-08-31 07:39] LABS: Chloride 91 mmol/L (98-107)
[2020-08-31 07:40] LABS: MANUAL DIFFERENTIAL MANUAL DIFFERENTIAL (MANUAL DIFF); Potassium 5.4 mmoL/L (3.5-5.1); Sodium 139 mmol/L (136-145)
[2020-08-31 07:43] LABS: Blood Urea Nitrogen 31 mg/dl (7-17); Calcium 9.9 mg/dl (8.4-10.2); Creatinine Clearance Estimated 79 mL/min (50-200); Estimated Glomerular Filt Rate 54 ml/min (>60); GFR (African American) 65 ML/MIN (>60); Glucose 194 mg/dl (74-100)
[2020-08-31 07:53] LABS: Anion Gap 10.4 mEq/L (5-15)
--- NOTE | 2020-08-31 07:55 | PC.NURSE ---
NOTIFIED DR SIERRA OF CO2 OF 43. NO NEW ORDERS.
[2020-08-31 08:00] LABS: Lymphocytes % 12 % (10-50); Neutrophils % 88 % (42-76); Platelet Estimate Normal; RBC Morphology Normal; Total Cells Counted 100
--- NOTE | 2020-08-31 08:13 | HMH.HP ---
*Admission Date: 08/30/20 *Chief complaint: Shortness of breath *History of present illness: 75-year-old female with severe COPD and COVID-19 pneumonia in June 2020 presented to the emergency department with a 3-day history of increasing shortness of breath both at rest and with exertion. Patient uses supplemental oxygen at home but even with use of supplemental oxygen and increase in flow rate to 4 L/min patient was unable to maintain her O2 sats above the mid 80s at home and presented to the ER. On presentation to the ER the patient was in mild respiratory distress and was treated with steroids and nebs. This did stabilize the patient and she was able to maintain O2 sats above 90% on 3 L at that point. Chest x-ray revealed bilateral pneumonia and patient does report a cough productive of yellow and green sputum. She denies fevers. She denies lower extremity swelling, chest pain. Patient sleeps with the head of bed elevated at home to relieve her dyspnea. [facility] History I have reviewed the patient's past medical history: Yes Medical History: Reports:: Chronic Obstructive Pulmonary Disease (COPD), Diabetes Mellitus Type 2, Hyperlipidemia, Hypertension Denies:: Cancer, Diabetes Mellitus Type 1, MRSA *Have you ever received a pneumonia vaccine?: No *Have you received a flu vaccine this season?: No Other Medical History: Reports: Cataracts Other Surgeries: Yes: Tubal Ligation Amputation: No - *Social History Smoking Status: Former smoker #Yrs smoked (if former smoker): 20 Alcohol Intake: never *Occupational Status:: retired Housing: house Household Members: family, children *Travel in the last 8 weeks: None Family Hx:: Cancer, Heart Attack Review of Systems - Constitutional Denies anorexia, Denies body ache(s), Denies chills, Denies lack of energy - Eyes Denies change in vision - *Cardiovascular Denies chest pain, Denies chest pain at rest, Denies chest pain with activity - *Respiratory Reports change in phlegm color, Reports chest congestion, Reports cough, Reports shortness of breath, Denies pain on inspiration - *Gastrointestinal Denies abdominal pain, Denies belching, Denies heartburn - *Genitourinary Denies difficulty urinating - *Musculoskeletal Denies abnormal walking, Denies joint pain, Denies decreased muscle mass - *Neurologic Reports dizziness, Reports weakness, Denies headache(s), Denies loss of vision, Denies fainting Meds Home Medications Medication Instructions Recorded Confirmed Type Amlodipine Besylate/Benazepril 1 each PO DAILY 09/04/19 08/30/20 History [Lotrel 10-20 mg Capsule] Furosemide [Furosemide 40MG tAB*] 40 mg PO BID 08/30/20 08/30/20 History Allergies Allergy/AdvReac Type Severity Reaction Status Date / Time No Known Allergies Allergy Verified 09/04/19 15:58 Exam Vital signs and Labs for Last 24 Hours: Temp Pulse Resp BP Pulse Ox 97.8 F 75 18 143/74 H 86 L 08/30/20 20:12 08/31/20 06:15 08/30/20 20:12 08/30/20 20:12 08/31/20 06:15 Laboratory Results - last 24 hr 08/30/20 15:48: VBG pH 7.41, VBG pCO2 77.9 H, VBG pO2 40.4 H, VBG HCO3 48.4 H, VBG Total CO2 50.8 H, VBG O2 Saturation 80.0 H, VBG Base Excess 23.8 H 08/30/20 15:54: WBC 10.2, RBC 3.89 L, Hgb 11.2 L, Hct 36.8 L, MCV 94.6, MCH 28.8, MCHC 30.4 L, RDW 14.2, Plt Count 273, MPV 7.6, Neut % (Auto) 74.0, Lymph % (Auto) 17.2, [place] % (Auto) 5.9, Eos % (Auto) 2.2, Baso % (Auto) 0.8, Neut # (Auto) 7.5, Lymph # (Auto) 1.8, [place] # (Auto) 0.6, Eos # (Auto) 0.2, Baso # (Auto) 0.1 08/30/20 15:54: Sodium 139, Potassium 4.7, Chloride 86 L, Carbon Dioxide 50 H*, Anion Gap 7.7, BUN 24 H, Creatinine 0.90, Estimated GFR 61, Est GFR ( Amer) 73, Glucose 137 H, Calcium 9.9, Total Bilirubin 0.6, AST 32, ALT 16, Alkaline Phosphatase 88, Troponin I < 0.01, Total Protein 8.2, Albumin 3.7, Globulin 4.5 H, Albumin/Globulin Ratio 0.8 L 08/30/20 15:54: D-Dimer 1.09 H 08/30/20 15:54: Ferritin 304 H, Procalcitonin 0.147 0
[2020-08-31 11:44] LABS: POC Glucose,Bedside 269 (70-110)
--- NOTE | 2020-08-31 13:15 | PC.NURSE ---
NOTIFIED DR SIERRA THAT PT IS HAVING PAIN IN HER RLE. SHE HAS HAD TROUBLE WITH IT FOR YEARS AFTER BREAKING IT, BUT IT IS HURTING MORE THAN NORMAL. TYLENOL WAS GIVEN AND DIDN'T HELP. NORCO ORDERED.
--- NOTE | 2020-08-31 14:57 | HMH.PHAVTE ---
[facility] Pharmacy VTE Monitoring - Patient Demographics Admission date: 08/31/20 Report Date: 08/31/20 Time: 14:57 Allergies/Adverse Reactions: Patient Allergies No Known Allergies Allergy (Verified 09/04/19 15:58) Height: 1.63 m Weight: 106.197 kg Patient Problems: Current Active Problems Acute exacerbation of chronic obstructive airways disease (Acute) COPD exacerbation (Acute) Community acquired pneumonia (Acute) Respiratory failure (Acute) Acute respiratory failure with hypercapnia (Acute) Essential hypertension (Acute) - VTE Risk Labs: VTE Related Lab Results Hgb 11.5 g/dL (12.2-16.2) L 08/31/20 07:10 Hct 37.6 % (37.0-47.0) 08/31/20 07:10 Plt Count 273 K/mm3 (142-424) 08/31/20 07:10 BUN 31 mg/dl (7-17) H D 08/31/20 07:10 Creatinine 1.00 mg/dl (0.52-1.04) 08/31/20 07:10 Estimated Creat Clear 79 mL/min (50-200) 08/31/20 07:10 VTE Score: 4 VTE Risk Level: Low Risk - Prophylaxis Types of VTE Prophylaxis: TEDS Knee High (SARA HOSE ORDER PLACED)
[2020-08-31 15:48] LABS: POC Glucose,Bedside 246 (70-110)
--- NOTE | 2020-08-31 18:22 | PC.NURSE ---
A&OX4. PT HAS TOLERATED 5L NC OK TODAY. RESPIRATIONS REGULAR AND UNLABORED. LUNG SOUNDS DIMINISHED THROUGHOUT. HAND SOUND PRINTER EQUAL. +2 PULSES NOTED THROUGHOUT. NO EDEMA NOTED. ACTIVE BOWEL SOUNDS HEARD IN ALL 4 QUADRANTS. SOFT AND NONTENDER ABDOMEN. NO BM REPORTED. PT VOIDS PER BATHROOM INDEPENDENTLY. NO PAIN REPORTED THROUGHOUT SHIFT. NO SOB REPORTED. PT HAS REMAINED UP IN THE CHAIR ALL SHIFT. LR INFUSING AT 50ML/HR. PT HAS RECEIVED 2 ANTIBIOTICS TODAY AND TOLERATED WELL. PT IS CURRENTLY UP TO THE CHAIR W CALL LIGHT WITHIN REACH. BED IN LOWEST POSITION. VSS. WILL CONTINUE TO MONITOR.
[2020-08-31 21:09] LABS: POC Glucose,Bedside 179 (70-110)
[2020-09-01] VITALS (8 sets, daily range): BP systolic 135–140; BP diastolic 56–76; PULSE 69–84; RESP 18–22; TEMP 36.4–36.9; O2SAT 90–93; BMI 39.9
--- NOTE | 2020-09-01 04:27 | PC.NURSE ---
PT. HAS NOT C/O PAIN, N/V/D, OR DIZZINESS THIS SHIFT. PT. REPORTS SOA WITH MOVEMENT, RECOVERS SLOWLY AFTER AMBULATING TO BR WITH O2 SAT DECREASING TO 75-80%. 5L NC WITH O2 SAT 90-91% AT REST. DIMINISHED LUNG SOUNDS NOTED T/O BILAT. PT. INSISTS TO SLEEP IN CHAIR T/O SHIFT. BLE ELEVATED AT THIS TIME.
[2020-09-01 06:33] LABS: Basophils % 0.1 % (0.1-2.0); Eosinophils % 0.1 % (0.1-12.0); Hematocrit 32.9 % (37.0-47.0); Lymphocytes % 8.6 % (10-50); Mean Corpuscular HGB Conc 31.2 g/dL (31.8-35.4); Mean Corpuscular Hemoglobin 29.7 pg (27.0-31.2); Mean Corpuscular Volume 95.2 fl (81-99); Mean Platelet Volume 7.4 fl (7.4-10.4); Monocytes # 0.3 K/mm3 (0.1-1.0); Monocytes % 2.8 % (1.7-9.3); Neutrophils # 10.1 K/mm3 (1.8-7.8); Neutrophils % 88.5 % (37.0-80.0); Platelet Count 289 K/mm3 (142-424); Red Blood Count 3.46 M/mm3 (4.20-5.40); Red Cell Distribution Width 14.4 % (11.5-17.5); White Blood Count 11.4 K/mm3 (4.8-10.8)
[2020-09-01 06:49] LABS: C-Reactive Protein 121.9 mg/L (0-4)
[2020-09-01 07:02] LABS: Procalcitonin 0.083 ng/mL (0.0-2.0)
--- NOTE | 2020-09-01 07:21 | HMH.ACPN2 ---
Internal Medicine - PN: Subj *Date: 09/01/20 *Time: 07:21 Interval history: Patient has no complaints this morning. She does not feel back to baseline. Oxygen requirement remains above baseline with 5 to 6 L/min via nasal cannula to maintain O2 sats in the low 90s. Patient has decrease in sats with ambulation. Exam Vital signs and Labs for Last 24 Hours: Temp Pulse Resp BP Pulse Ox 97.6 F 71 22 140/76 91 L 09/01/20 04:00 09/01/20 06:15 09/01/20 04:00 09/01/20 04:00 09/01/20 06:15 Laboratory Results - last 24 hr 08/31/20 07:10: WBC 8.1, RBC 3.94 L, Hgb 11.5 L, Hct 37.6, MCV 95.4, MCH 29.1, MCHC 30.5 L, RDW 14.0, Plt Count 273, MPV 7.0 L, Neut % (Auto) 85.5 H, Lymph % (Auto) 12.4, [place] % (Auto) 1.9, Eos % (Auto) 0.1, Baso % (Auto) 0.1, Neut # (Auto) 7.0, Lymph # (Auto) 1.0, [place] # (Auto) 0.2, Eos # (Auto) 0.0, Baso # (Auto) 0.0, Total Counted 100, Neutrophils % (Manual) 88 H, Lymphocytes % (Manual) 12, Platelet Estimate Normal, RBC Morphology Normal 08/31/20 07:10: Sodium 139, Potassium 5.4 H, Chloride 91 L, Carbon Dioxide , Anion Gap 10.4, BUN 31 H D, Creatinine 1.00, Estimated Creat Clear 79, Estimated GFR 54 L, Est GFR ( Amer) 65, Glucose 194 H D, Calcium 9.9 08/31/20 11:24: POC Glucose 269 H 08/31/20 15:29: POC Glucose 246 H 08/31/20 20:30: POC Glucose 179 H 09/01/20 06:14: C-Reactive Protein 121.9 H, Procalcitonin 0.083 I & O for Last 24 hours: Intake & Output 08/29/20 08/30/20 08/31/20 09/01/20 11:59 11:59 11:59 11:59 Intake Total 780 / 780 2451 / 2451 Output Total 250 / 250 450 / 450 Balance 530 / 530 2000 Weight 234 lb 2 oz 233 lb 14.109 oz Narrative: Patient is sitting in his chair appears comfortable. No increased work of breathing. Patient's breath sounds are distant throughout especially at the bases with expiratory wheezes heard in the upper lung naranjo and anteriorly. Heart has a regular rate and rhythm. Abdomen is soft. Assessment and Plan (1) Acute respiratory failure with hypercapnia Status: Acute Category: Medical Code(s): J96.02 - Acute respiratory failure with hypercapnia (2) Acute exacerbation of chronic obstructive airways disease Status: Acute Category: Medical Code(s): J44.1 - Chronic obstructive pulmonary disease with (acute) exacerbation (3) Community acquired pneumonia Status: Acute Qualifiers: Laterality: left Lung location: lower lobe of lung Qualified Code(s): J18.9 - Pneumonia, unspecified organism Category: Medical Code(s): J18.9 - Pneumonia, unspecified organism (4) Essential hypertension Status: Acute Category: Medical Code(s): I10 - Essential (primary) hypertension - Assessment and plan all Dx Assessment and Plan for all problems:: 1. Discontinue IV fluids. Continue steroids and antibiotics. 2. I am going to start the patient on low-dose diuretic. 3. Goal for discharge will be maintaining O2 sats on 4 L/min
[2020-09-01 07:41] LABS: MANUAL DIFFERENTIAL MANUAL DIFFERENTIAL (MANUAL DIFF)
[2020-09-01 08:53] LABS: Hemoglobin A1C 6.2 % (4.0-6.0)
[2020-09-01 09:40] LABS: Lymphocytes % 20 % (10-50); Monocytes % 4 % (2-9); Neutrophils % 76 % (42-76); RBC Morphology Normal; Total Cells Counted 100
[2020-09-01 09:41] LABS: Platelet Estimate Normal
[2020-09-01 11:02] LABS: POC Glucose,Bedside 263 (70-110)
[2020-09-01 11:36] LABS: Hemoglobin 10.3 g/dL (12.2-16.2)
[2020-09-01 17:22] LABS: POC Glucose,Bedside 158 (70-110)
--- NOTE | 2020-09-01 19:00 | PC.NURSE ---
A&OX4. PT HAS TOLERATED 5L NC WELL THROUGHOUT SHIFT. RESPIRATIONS REGULAR AND UNLABORED. LEXPIRATORY WHEEZES NOTED THROUGHOUT. HAND TANK CLEANING SUPERVISOR EQUAL. +2 PULSES NOTED THROUGHOUT. NO EDEMA NOTED. ACTIVE BOWEL SOUNDS HEARD IN ALL 4 QUADRANTS. SOFT AND NONTENDER ABDOMEN. NO BM REPORTED. PT VOIDS PER BATHROOM INDEPENDENTLY. NO PAIN REPORTED THROUGHOUT SHIFT. NO SOB REPORTED. PT HAS REMAINED UP IN THE CHAIR ALL SHIFT. PT HAS RECEIVED 2 ANTIBIOTICS TODAY AND TOLERATED WELL. PT IS CURRENTLY UP TO THE CHAIR W CALL LIGHT WITHIN REACH. BED IN LOWEST POSITION. VSS. WILL CONTINUE TO MONITOR.
[2020-09-01 21:10] LABS: POC Glucose,Bedside 240 (70-110)
[2020-09-02] VITALS (11 sets, daily range): BP systolic 120–135; BP diastolic 53–67; PULSE 54–78; RESP 18–24; TEMP 36.4–36.9; O2SAT 92–93; BMI 40.6
[2020-09-02 00:41] LABS: POC Glucose,Bedside 205 (70-110)
--- NOTE | 2020-09-02 05:16 | PC.NURSE ---
A&Ox4. Respirations regular and unlabored. B/L Lungs clear throughout. O2 4L NC. No cough noted at this time shift. Active bowel sounds x 4 quadrants. 20g in LAC C/D/I. No edema noted; B/L pedal pulses noted. Denies pain or SOB. Call light within reach. Pt sitting up in chair. VSS. Will continue to monitor.
--- NOTE | 2020-09-02 07:25 | HMH.ACPN2 ---
Internal Medicine - PN: Subj *Date: 09/02/20 *Time: 07:25 Interval history: No acute issues have developed in the last 24 hours. Patient reports slight improvement in dyspnea. Patient still gets short of breath with light ambulation such as walking from the recliner to the bathroom which is approximately 10 to 12 feet. Cough is improved and remains nonproductive Exam Vital signs and Labs for Last 24 Hours: Temp Pulse Resp BP Pulse Ox 97.5 F L 78 24 135/67 93 L 09/02/20 04:00 09/02/20 06:23 09/02/20 04:00 09/02/20 04:00 09/02/20 06:23 Laboratory Results - last 24 hr 09/01/20 05:09: POC Glucose 205 H 09/01/20 06:14: WBC 11.4 H D, RBC 3.46 L, Hgb 10.3 L D, Hct 32.9 L, MCV 95.2, MCH 29.7, MCHC 31.2 L, RDW 14.4, Plt Count 289, MPV 7.4, Neut % (Auto) 88.5 H, Lymph % (Auto) 8.6 L, [place] % (Auto) 2.8, Eos % (Auto) 0.1, Baso % (Auto) 0.1, Neut # (Auto) 10.1 H, Lymph # (Auto) 1.0, [place] # (Auto) 0.3, Eos # (Auto) 0.0, Baso # (Auto) 0.0, Total Counted 100, Neutrophils % (Manual) 76, Lymphocytes % (Manual) 20, Monocytes % (Manual) 4, Platelet Estimate Normal, RBC Morphology Normal 09/01/20 06:14: Hemoglobin A1c 6.2 H 09/01/20 10:27: POC Glucose 263 H 09/01/20 16:50: POC Glucose 158 H 09/01/20 20:55: POC Glucose 240 H I & O for Last 24 hours: Intake & Output 08/30/20 08/31/20 09/01/20 09/02/20 11:59 11:59 11:59 11:59 Intake Total 780 / 780 3051 / 3051 1200 / 1200 Output Total 250 / 250 900 / 900 Balance 530 / 530 2151 / 2151 1200 / 1200 Weight 234 lb 2 oz 233 lb 14.109 oz 238 lb Microbiology Reports for the Last 24 Hours: Microbiology 08/30/20 15:56 Blood - Left Blood Culture - Preliminary NO GROWTH AFTER 48 HOURS 08/30/20 15:56 Blood - Left Blood Culture - Preliminary NO GROWTH AFTER 48 HOURS Narrative: Patient looks comfortable this morning. On lung exam there is improved aeration but persistence of rales posteriorly left greater than right. Heart has a regular rate and rhythm. Assessment and Plan (1) Acute respiratory failure with hypercapnia Status: Acute Category: Medical Code(s): J96.02 - Acute respiratory failure with hypercapnia (2) Acute exacerbation of chronic obstructive airways disease Status: Acute Category: Medical Code(s): J44.1 - Chronic obstructive pulmonary disease with (acute) exacerbation (3) Community acquired pneumonia Status: Acute Qualifiers: Laterality: left Lung location: lower lobe of lung Qualified Code(s): J18.9 - Pneumonia, unspecified organism Category: Medical Code(s): J18.9 - Pneumonia, unspecified organism (4) Essential hypertension Status: Acute Category: Medical Code(s): I10 - Essential (primary) hypertension - Assessment and plan all Dx Assessment and Plan for all problems:: 1. Patient is slowly improving and will continue steroids, duo nebs, antibiotics 2. Patient continues to improve at this rate anticipate discharge tomorrow
[2020-09-02 07:44] LABS: POC Glucose,Bedside 208 (70-110)
--- NOTE | 2020-09-02 09:30 | PC.NURSE ---
pt assessed at this time. pt ambulated to br and back to chair at this time and experienced moderate sob. bilateral lung sounds clear. no edema noted. cough that is intermittent but nonproductive. will continue to observe.
--- NOTE | 2020-09-02 10:10 | PC.NURSE ---
pt has 4L o2 via nc at this time. sitting up in chair watching tv and talking on telephone. pt is a&o x4. 20 iv in l ac that is SL. will continue to observe.
[2020-09-02 10:41] LABS: POC Glucose,Bedside 266 (70-110)
--- NOTE | 2020-09-02 11:33 | PC.NURSE ---
PATIENT HAS A HARD TIME REPOSITIONING AND PULLING HERSELF UP IN THE BED I BELIEVE PT WOULD BENEFIT FROM A HOSPITAL BED AT HOME. PT IS EASILY FATIGUED AND SOB AND WOULD BENEFIT FROM A BSC AT HOME WELL.
--- NOTE | 2020-09-02 11:44 | SW/DCPLANNER ---
Addendum entered by Jacki Ibanez 09/03/20 09:23: PATIENT NEEDED A NEBULIZER AND I HAVE SENT THIS TO [facility] PER PATIENT REQUEST... THIS WILL BE DELIVERED TO THE HOME... Original Note: PATIENT REQUESTED A HOSPITAL BED AND BEDSIDE COMMODE PER DR SIERRA RECOMMENDATION...PATIENT HAS O2 WITH [facility] BUT WISHES TO USE [facility] FOR BED AND BEDSIDE COMMODE.. I HAVE ASKED FOR THIS TO BE DELIVERED THIS AFTERNOON BECAUSE HER SON AND DAUGHTER IN LAW THAT LIVE WITH HER WORKS NIGHTS AND THEY CAN ARRANGE THE ROOM FOR THE BED.. DR SIERRA PLANS TO SEND PATIENT HOME IN THE AM..(TUE)..
--- NOTE | 2020-09-02 16:00 | PC.NURSE ---
Sputum cup at bedside Pt verbalizes understanding to obtain a sputum sample.
[2020-09-02 19:14] LABS: POC Glucose,Bedside 205 (70-110)
--- NOTE | 2020-09-02 20:10 | PC.NURSE ---
patient has done well this shift. has had no complaints. rings out as needed. has been sitting up in chair. required insulin during fsbs checks. vitals stable.
[2020-09-03 01:18] LABS: POC Glucose,Bedside 222 (70-110)
[2020-09-03 04:00] VITALS: BP 143/73; PULSE 70; RESP 18; TEMP 36.7; O2SAT 92
[2020-09-03 05:00] VITALS: BMI 40.6
--- NOTE | 2020-09-03 05:44 | PC.NURSE ---
Pt is A&Ox4 this shift. Pt has been tolerating 4L NC appropriately this shift w/ o2 sats between 91-93%. Pt lungs sounds are clear t/o w/ exceptions to the bilat bases, where lung sounds are diminished per auscultation. No productive cough noted this shift. Skin remains CDI. Active bowel sounds in all 4 quads, no BM noted this shift. Pt slept in the recliner the entire shift. No other acute changes or complaints.
[2020-09-03 06:16] VITALS: PULSE 90; PULSE 94; O2SAT 92
[2020-09-03 06:29] LABS: POC Glucose,Bedside 198 (70-110)
--- NOTE | 2020-09-03 07:40 | HMH.DCSUM ---
General - General Admission date:: 08/30/20 Discharge date: 09/03/20 HPI HPI: 75-year-old female with severe COPD and COVID-19 pneumonia in June 2020 presented to the emergency department with a 3-day history of increasing shortness of breath both at rest and with exertion. Patient uses supplemental oxygen at home but even with use of supplemental oxygen and increase in flow rate to 4 L/min patient was unable to maintain her O2 sats above the mid 80s at home and presented to the ER. On presentation to the ER the patient was in mild respiratory distress and was treated with steroids and nebs. This did stabilize the patient and she was able to maintain O2 sats above 90% on 3 L at that point. Chest x-ray revealed bilateral pneumonia and patient does report a cough productive of yellow and green sputum. She denies fevers. She denies lower extremity swelling, chest pain. Patient sleeps with the head of bed elevated at home to relieve her dyspnea. Hospital Course Hospital Course: Patient was admitted with standard care for COPD exacerbation with addition of azithromycin and Rocephin for persistent pneumonia. Pneumonia on x-ray had the appearance of viral pneumonia and patient had documented COVID-19 infection over a month prior to this admission. Upon admission patient had supplemental oxygen increased to keep sats above 90s. Over the course of hospitalization patient's respiratory exam improved. Initially patient was very tight with poor aeration and rales in the left midlung. As hospitalization progressed patient had improvement in aeration transient wheezing that resolved with nebs and decrease in rales. On September 03 patient had reached significant medical improvement that allowed for discharged home. Patient was discharged home in stable condition. It was revealed during hospitalization the patient sleeps in a recliner to relieve her dyspnea. We arrange for hospital bed as a regular bed does not allow for positioning of the head of the bed to relieve dyspnea. This was delivered to home. Bedside commode was also arranged for the patient. Patient also felt like she benefited from use of duo nebs and these will be continued at discharge as well. Patient also finished a 7-day course of prednisone at discharge. Patient will have follow-up via a telehealth visit Objective Vital signs: Temp Pulse Resp BP Pulse Ox 98.0 F 94 H 18 143/73 H 92 L 09/03/20 04:00 09/03/20 06:16 09/03/20 04:00 09/03/20 04:00 09/03/20 06:16 Results Labs on day of discharge: Labs from last 24 hours 09/03/20 09/02/20 09/02/20 06:21 21:18 16:08 POC Glucose 198 H 222 H 205 H 09/02/20 09/02/20 10:32 06:55 POC Glucose 266 H 208 H Preliminary micro results at discharge 08/30/20 15:56 Blood Culture - Preliminary Blood - Left NO GROWTH AFTER 48 HOURS 08/30/20 15:56 Blood Culture - Preliminary Blood - Left NO GROWTH AFTER 48 HOURS DS: Diagnosis - Discharge Diagnosis (1) Acute respiratory failure with hypercapnia Status: Acute (2) Acute exacerbation of chronic obstructive airways disease Status: Acute (3) Community acquired pneumonia Status: Acute (4) Essential hypertension Status: Acute Discharge Plan - Patient Discharge Instructions ACTIVITY: Continue current activity DIET: continue same diet Patient Instructions: Chronic Obstructive Pulmonary Disease, DI for Respiratory Failure - Follow up Plan Disposition: Home, Self-Nursing Home Medications: Home Medications Medication Instructions Recorded Confirmed Type Amlodipine Besylate/Benazepril 1 each PO DAILY 09/04/19 08/30/20 History [Lotrel 10-20 mg Capsule] Furosemide [Furosemide 40MG tAB*] 40 mg PO BID 08/30/20 08/30/20 History Ipratropium/Albuterol Sulfate 3 ml IH Q4HP PRN #60 ampul.neb 09/03/20 Rx [Iprat-Albut 0.5-3(2.5) mg/3 ml] predniSONE [Deltasone 10mg tablet] 10 mg PO DAILY 30 Days #7 ta
[2020-09-03 08:00] VITALS: BP 143/70; PULSE 83; RESP 19; TEMP 36.4; O2SAT 94
== END 2020-09-03 09:30 | disposition home or self-care (01) | DRG 190 ==
LOC: ER 18:14 → 2ND 18:33
PROVIDERS: Admitting Provider Family Medicine; Emergency Provider Emergency Medicine; PCP Family Medicine; Visit Provider Family Medicine
DX: J44.1 Chronic obstructive pulmonary disease with (acute) exacerbation (principal); J18.9 Pneumonia, unspecified organism; J96.02 Acute respiratory failure with hypercapnia; J44.0 Chronic obstructive pulmonary disease with (acute) lower respiratory infection; E11.9 Type 2 diabetes mellitus without complications; I10 Essential (primary) hypertension; E78.5 Hyperlipidemia, unspecified; Z86.16 Personal history of COVID-19; Z87.891 Personal history of nicotine dependence
CPT/HCPCS: 36415; 71045; 71275; 80048; 80053; 82728; 82803; 82962; 83036; 83880; 84145; 84484; 85007; 85025; 85378; 86140; 86328; 87040; 93005; 94640; 96365; 96375; 99284; J0456; Q9967

== ENCOUNTER → 2021-02-09 08:49 | Outpatient (CLI) | payer MEDICARE, MEDICAID, SELFPAY | PROVIDERS: Visit Provider Ophthalmology | DX: Z01.812 Encounter for preprocedural laboratory examination (principal); Z20.822 Contact with and (suspected) exposure to COVID-19 | CPT/HCPCS: U0003 ==

== ENCOUNTER 2021-02-10 09:49 | Day surgery (SDC) | payer MEDICARE, MEDICAID, SELFPAY ==
[2021-02-05 10:45] VITALS: BMI 40.3
[2021-02-10] VITALS (7 sets, daily range): BP systolic 145–198; BP diastolic 62–90; PULSE 62–74; RESP 18–20; TEMP 36.3–36.4; O2SAT 94–99
== END 2021-02-10 12:25 | disposition home or self-care (01) ==
LOC: OR 09:52
PROVIDERS: PCP Family Medicine; Visit Provider Ophthalmology
DX: H25.813 Combined forms of age-related cataract, bilateral (principal); H53.149 Visual discomfort, unspecified; H02.831 Dermatochalasis of right upper eyelid; H02.834 Dermatochalasis of left upper eyelid; J44.9 Chronic obstructive pulmonary disease, unspecified; I10 Essential (primary) hypertension; M19.90 Unspecified osteoarthritis, unspecified site; E78.5 Hyperlipidemia, unspecified; Z79.899 Other long term (current) drug therapy
CPT/HCPCS: 66984; V2632

== ENCOUNTER 2021-02-18 05:05 | Inpatient (IN) | payer MEDICARE, MEDICAID, SELFPAY ==
[2021-02-18] VITALS (18 sets, daily range): BP systolic 90–146; BP diastolic 34–84; PULSE 64–84; RESP 16–24; TEMP 36.6–37; O2SAT 89–99; BMI 39.4; BMI 39.9; BMI 39.5
--- NOTE | 2021-02-18 07:05 | ECG_ITS ---
APPROVED REPORT Exam: Resting ECG HR:74 bpm ECG Measurements Heart Rate 74 AXES WA 194 P 86 QRSd 76 QRS -3 QT 352 T 18 QTc 390 Conclusion Normal sinus rhythm Low voltage QRS Septal infarct, age undetermined Abnormal ECG Electronically signed by : Lexx Moore, 02/19/2021 17:02:32
[2021-02-18 07:15] LABS: ABG Base Excess 8.7 mmol/L (-2.4-2.3); ABG HCO3 37.3 mmhg (22.0-26.0); ABG Oxygen Saturation 94 % (90-100); ABG TCO2 40.6 mmhg (23-27)
[2021-02-18 07:16] LABS: Allen's Test ACCEPTABLE; Oxygen 4LPM %; Source R RADIAL
[2021-02-18 07:17] LABS: ABG PCO2 105.4 mmhg (35.0-45.0); ABG PH 7.17 mmol/L (7.35-7.45)
--- NOTE | 2021-02-18 07:17 | PC.NURSE ---
Results called from ABFarzad to Lalo Chacko RN at this time, Critical results given to Dr. Crow
--- NOTE | 2021-02-18 07:28 | XR_ITS ---
PROCEDURE INFORMATION: Exam: XR Chest Exam date and time: 02/18/2021 7:28 AM Age: 75 years old Clinical indication: Shortness of breath; Additional info: Copd, SOA TECHNIQUE: Imaging protocol: XR of the chest. Views: 1 view. COMPARISON: CR XR CHEST PORTABLE 08/30/2020 4:34 PM FINDINGS: Lungs: There is consolidation left lower lung consist with atelectasis and/or infiltrate. Pleural spaces: Unremarkable. No pleural effusion. No pneumothorax. Heart/Mediastinum: Unremarkable. No cardiomegaly. Diaphragm: There is nonspecific elevation of the right hemidiaphragm, unchanged. Bones/joints: Unremarkable. IMPRESSION: There is consolidation left lower lung consist with atelectasis and/or infiltrate.
--- NOTE | 2021-02-18 07:31 | HMH.EDWEAK ---
ED Disposition Clinical Impression: Acute respiratory failure with hypercapnia, Acute exacerbation of chronic obstructive airways disease Disposition: Admitted As Inpatient Condition on Discharge: Serious Referrals: Lexx Barlow MD [Primary Care Provider] - - Critical Care Critical Care Time: No Attestation: On 02/18/21, the high probability of a clinically significant, sudden or life threatening deterioration of the following system(s) required my full and direct attention, intervention and personal management. The time I documented below is in addition to time spent performing reported procedures but includes the following listed in this critical care notation. Medical Decision Making - Medical Records Medical records reviewed: Yes: I reviewed the patient's medical records. - [place] Inquiry Pt receiving controlled substance: No Vital Signs: 02/18/21 05:20 Temperature 98.4 F Temperature Source Oral Pulse Rate [Right] 78 Respiratory Rate 20 Blood Pressure [Right Arm] 139/58 L Blood Pressure Mean [Right Arm] 85 02 Sat by Pulse Oximetry 94 L Oxygen Delivery Method Nasal Cannula Oxygen Flow Rate (LPM) 3 - Lab Data Lab results reviewed: Yes: I reviewed the patient's lab results. Lab Results 02/18/21 07:12: Specimen Source R radial, O2 % 4lpm, ABG pH 7.17 L*, ABG pCO2 105.4 H, ABG pO2 72.0 L, ABG HCO3 37.3 H, ABG Total CO2 40.6 H, ABG O2 Saturation 94, ABG Base Excess 8.7 H, Angel Test Acceptable Orders (Tests/Meds): ED MEDICATIONS Generic Name Dose Route Start Last Admin Trade Name Freq PRN Reason Stop Dose Admin Levofloxacin/Dextrose 500 mg in 100 mls @ 100 mls/hr 02/18/21 07:30 Levaquin 500mg/100ml Premix IV 03/04/21 07:29 Q24H CHRISSIE Protocol Sodium Chloride 1,000 mls @ 999 mls/hr 02/18/21 07:30 Sod Chlor 0.9% 1000ml Bag IV 02/18/21 08:30 .Q1H1M CHRISSIE Sodium Chloride 8 ml 02/18/21 07:24 Sodium Chloride 0.9% 10ml Vial IV 03/20/21 07:23 NEEDED PRN dilute pepcid Discontinued Medications Generic Name Dose Route Start Last Admin Trade Name Freq PRN Reason Stop Dose Admin Famotidine 20 mg 02/18/21 07:24 Famotidine 20mg/2ml Vial IV 02/18/21 07:25 ONCE ONE Ketorolac Tromethamine 30 mg 02/18/21 07:24 Ketorolac 30mg/Ml Vial IV 02/18/21 07:25 ONCE ONE Methylprednisolone Sodium Succinate 125 mg 02/18/21 07:24 Methylprednisolone Sod Succ 125mg Vial IV 02/18/21 07:25 ONCE ONE Metoclopramide HCl 10 mg 02/18/21 07:24 Metoclopramide Hcl 10mg/2ml Vial IVP 02/18/21 07:25 ONCE ONE Ondansetron HCl 4 mg 02/18/21 07:24 Ondansetron 4mg/2ml Vial IV 02/18/21 07:25 ONCE ONE ORDERS Category Date Time Status CT abdomen pelvis wo con Stat Cat Scan 02/18/21 07:25 Ordered XR chest portable Routine Exams 02/18/21 07:28 Taken Amylase Stat Lab 02/18/21 07:25 Ordered Brain Natriuretic Peptide Stat Lab 02/18/21 07:25 Ordered C-Reactive Protein Stat Lab 02/18/21 07:25 Ordered Complete Blood Count Auto Diff Stat Lab 02/18/21 07:25 Ordered Comprehensive Metabolic Panel Stat Lab 02/18/21 07:25 Ordered Erythrocyte Sedimentation Rate Stat Lab 02/18/21 07:25 Ordered Lactic Acid Stat Lab 02/18/21 07:25 Ordered Lipase Stat Lab 02/18/21 07:25 Ordered Procalcitonin Stat Lab 02/18/21 07:25 Ordered Rapid PCR Covid and Flu A/B Stat Lab 02/18/21 07:29 Ordered Troponin I Q3H Lab 02/18/21 10:30 Ordered Troponin I Q3H Lab 02/18/21 13:30 Ordered Troponin I Stat Lab 02/18/21 07:25 Ordered Urinalysis and Microscopic Stat Lab 02/18/21 07:29 Ordered Blood Culture Stat Micro 02/18/21 07:25 Ordered Arterial Blood Gas Stat RT 02/18/21 07:25 Ordered - Radiology Data #1 Image(s): Chest Image Reviewed: Yes I reviewed the patient's radiology image Preliminary Findings: Abnormal (poor insp) - ECG Data Tracing #1 Normal Sinus Rhythm: Yes Ischemic changes: non-specific ST-T wave ch
[2021-02-18 07:45] LABS: Basophils % 0.6 % (0.1-2.0); Eosinophils % 0.5 % (0.1-12.0); Hemoglobin 10.2 g/dL (12.2-16.2); Lymphocytes # 1.7 K/mm3 (0.7-4.5); Lymphocytes % 25.8 % (10-50); Mean Corpuscular HGB Conc 29.9 g/dL (31.8-35.4); Mean Corpuscular Hemoglobin 28.9 pg (27.0-31.2); Mean Corpuscular Volume 96.9 fl (81-99); Mean Platelet Volume 6.9 fl (7.4-10.4); Monocytes # 0.4 K/mm3 (0.1-1.0); Monocytes % 5.8 % (1.7-9.3); Neutrophils # 4.5 K/mm3 (1.8-7.8); Neutrophils % 67.2 % (37.0-80.0); Platelet Count 192 K/mm3 (142-424); Red Blood Count 3.51 M/mm3 (4.20-5.40); Red Cell Distribution Width 13.2 % (11.5-17.5); White Blood Count 6.7 K/mm3 (4.8-10.8)
[2021-02-18 07:47] LABS: Erythrocyte Sedimentation Rate 119 mm/hr (0-30)
[2021-02-18 07:48] LABS: Coronavirus 19, PCR Not Detected (NotDetected); Influenza A, PCR Not Detected (NotDetected); Influenza B, PCR Not Detected (NotDetected)
[2021-02-18 07:52] LABS: Alanine Aminotransferase 9 U/L (12-78); Albumin Level 4.2 g/dl (3.5-5.0); Albumin/Globulin Ratio 1.1 (1.1-1.8); Alkaline Phosphatase 78 U/L (38-126); Amylase 60 U/L (30-110); Anion Gap 12.6 mEq/L (5-15); Aspartate Amino Transferase 25 U/L (14-36); Bilirubin,Total 0.3 mg/dl (0.2-1.3); Blood Urea Nitrogen 33 mg/dl (7-17); Calcium 9.6 mg/dl (8.4-10.2); Carbon Dioxide 40 mmol/L (22.0-30.0); Chloride 96 mmol/L (98-107); Creatinine Clearance Estimated 78 mL/min (50-200); Estimated Glomerular Filt Rate 54 ml/min (>60); GFR (African American) 65 ML/MIN (>60); Globulin 3.8 g/dL (1.3-3.2); Glucose 121 mg/dl (74-100); Lipase 67 U/L (23-300); Potassium 5.6 mmoL/L (3.5-5.1); Sodium 143 mmol/L (136-145)
[2021-02-18 07:53] LABS: Troponin I < 0.01 ng/ml (0.00-0.034)
[2021-02-18 08:02] LABS: Appearance,Urine CLEAR (Clear); Bilirubin,Urine Negative (Negative); Blood, Urine Negative (Negative); Color,Urine YELLOW (Yellow); Glucose,Urine (UA) Negative (Negative); Ketones,Urine Negative (Negative); Leukocyte Esterase,Urine Negative (Negative); Microscopic, Urine URINE MICROSCOPIC (MICROSCOPIC); Nitrate,Urine Negative (Negative); PH,Urine 5.5 (5.0-8.5); Protein,Urine Negative (Negative); Specific Gravity, Urine >= 1.030 (1.005-1.030); Urobilinogen,Urine 0.2 EU/dl (0.2)
[2021-02-18 08:10] LABS: RBC,Urine Occasional #/hpf (0-3)
[2021-02-18 08:11] LABS: Bacteria,Urine Trace /lpf
[2021-02-18 08:32] LABS: Lactic Acid < 0.5 mmol/L (0.7-2.1)
--- NOTE | 2021-02-18 08:45 | PC.NURSE ---
report called to floor
--- NOTE | 2021-02-18 09:36 | PC.NURSE ---
pt transferred to floor per stretcher
--- NOTE | 2021-02-18 10:00 | P.CONPHA_ITS ---
[facility] Pharmacy VTE Monitoring - Patient Demographics Admission date: 02/18/21 Report Date: 02/18/21 Time: 10:00 Allergies/Adverse Reactions: Patient Allergies No Known Allergies Allergy (Verified 02/18/21 07:27) Height: 1.63 m Weight: 105.404 kg Patient Problems: Current Active Problems Acute exacerbation of chronic obstructive airways disease (Acute) Acute respiratory failure with hypercapnia (Acute) - VTE Risk Labs: VTE Related Lab Results Hgb 10.2 g/dL (12.2-16.2) L 02/18/21 05:30 Hct 34.0 % (37.0-47.0) L 02/18/21 05:30 Plt Count 192 K/mm3 (142-424) 02/18/21 05:30 BUN 33 mg/dl (7-17) H 02/18/21 05:30 Creatinine 1.00 mg/dl (0.52-1.04) 02/18/21 05:30 Estimated Creat Clear 78 mL/min (50-200) 02/18/21 05:30 Clinical Trial Participant: No - Prophylaxis VTE Prophylaxis Ordered?: Yes Types of VTE Prophylaxis: TEDS Knee High
--- NOTE | 2021-02-18 10:23 | CA_ITS ---
APPROVED REPORT EXAM: Comprehensive 2D, Doppler, and color-flow Echocardiogram Applications Developer: AALIYAH Johnson, RVS Ht: 5 ft 4 in Wt: 232lbs BSA: 2.08 BP: 139/58 mmHg Indications: SOB, Respiratory failure, COPD, HTN, HLD, ex- smoker, Hx-COVID -19 Echo Enhancing Agent Comments: Technically limited due to extreme body habitus with lung impedence 2D Dimensions Left Atrium 3.46 cm LA Volume 62.40 mL LVOT 2.00 cm (M/F) 1.5-2.5 LA Volume Index 30.00 mL/m2 (M/F) 16-34 Ascending Aorta 3.01 cm M-Mode Dimensions RVDd 3.01 cm (0.9-2.6) LA Diam 3.83 cm (1.9-4.0) LVDd 5.11 cm (3.5-5.7) Ao Diam 3.01 cm (2.0-3.7) LVDs 2.82 cm (3.5-5.7) IVSd 0.91 cm (0.6-1.1) PWd 0.80 cm (0.6-1.1) EF (Teich) 75.80% EPSs 0.72 cm FS 44.80% EDV (Teich) 124.40 mL TAPSE 3.71 (<1.7) ESV (Teich) 30.10 mL LV Diastology E Decel Time 193.00 (160-240 msec) E/A Ratio 0.82 MED E' 8.00 (< 7 cm/sec) MED A' 12.80 cm/s E'/MED E' Ratio 11.98 (>14) LAT E' 7.10 (<10 cm/sec) LAT A' 9.70 cm/s E/LAT E' Ratio 13.49 (>14) Aortic Valve LVOT Max 103.00 (70-110 cm/s) LVOT VTI 24.89 cm AoV Peak Jose Angel. 192.00 (50-130 cm/s) AO Peak GR. 14.70 mmHg AO Mean GR. 7.30 (<5 mmHg) AO VTI 45.02 (18-25 cm) MYRA (VTI) 1.74 (2.5-4.5 cm2) Mitral Valve MV A Velocity 117.00 (40-130 cm/s) E/A Ratio 0.82 MV Decel. Time 193.00 (160-240 ms) Pulmonary Valve PV Peak Velocity 103.00 (50-150 cm/s) Left Ventricle Left atrium is mildly enlarged, left ventricle is normal size, mild concentric left ventricular hypertrophy, visually estimated ejection fraction 55% with no regional wall motion abnormality, grade 1 diastolic dysfunction seen without tissue Doppler evidence of raise left atrial pressure. Right Ventricle Right atrium and right ventricle mildly enlarged with normal contractility. Aortic Valve Aortic valve is minimally thickened and fibrosed, there is no aortic stenosis or aortic insufficiency. Mitral Valve Mitral valve is grossly normal, there is trace mitral regurgitation. Tricuspid Valve Tricuspid valve grossly normal, there is trace tricuspid regurgitation, tricuspid regurgitation jet velocity is inadequate for calculation of the right ventricular systolic pressure. Pulmonic Valve Pulmonic valve is poorly visualized. Great Vessels Aortic root is normal size. Pericardium No significant pericardial effusion noted. Conclusion 1. Mild biatrial enlargement, normal left ventricular size, mild concentric left ventricular hypertrophy, visually estimated ejection fraction 55% with no regional wall motion abnormality, grade 1 diastolic dysfunction seen without tissue Doppler evidence of raise left atrial pressure. 2. Mildly enlarged right ventricle with normal contractility. 3. Trace mitral and tricuspid regurgitation. 4. No significant pericardial effusion noted. Electronically signed by : Dalton Burns, 02/20/2021 10:23:13
[2021-02-18 10:48] LABS: C-Reactive Protein 5.2 mg/L (0-4)
[2021-02-18 10:54] LABS: NT Pro Brain Natriuretic Pep. 447 pg/mL (0-450)
[2021-02-18 11:02] LABS: Procalcitonin 0.053 ng/mL (0.0-2.0)
[2021-02-18 11:39] LABS: ABG Base Excess 2.8 mmol/L (-2.4-2.3); ABG HCO3 31.3 mmhg (22.0-26.0); ABG Oxygen Saturation 95 % (90-100); ABG PO2 77.7 mmhg (80-100)
[2021-02-18 11:41] LABS: Oxygen 45% %; PEEP 6; Pressure Support 18; Vent Rate 20
[2021-02-18 11:42] LABS: Allen's Test Acceptable; Source Left Brachial
[2021-02-18 11:51] LABS: ABG PCO2 87.5 mmhg (35.0-45.0); ABG PH 7.17 mmol/L (7.35-7.45)
[2021-02-18 12:16] LABS: Troponin I < 0.01 ng/ml (0.00-0.034)
--- NOTE | 2021-02-18 12:18 | HMH.HP ---
*Admission Date: 02/18/21 *Chief complaint: Decreased level of consciousness *History of present illness: 75-year-old female with severe COPD, oxygen dependent at home, presented to the emergency department with family due to depressed level of consciousness. Patient's son reports he had difficulty awakening the patient early this morning. Patient had been ill the day prior with multiple episodes of vomiting. Patient and family are unaware of any fevers or chills. Patient denies any worsening shortness of breath or cough over the last 24 hours. Patient supplemental oxygen had remained on 3 L/min at home in the ER patient was found acute hypercapnic respiratory failure. Patient was placed on BiPAP and admitted. Since admission to the [facility] floor patient's level of consciousness has gradually improved and patient is now awake and alert. Blood gas has shown improvement in the hypercapnia although acidosis persists. Patient's arterial oxygen level is appropriate. [facility] History I have reviewed the patient's past medical history: Yes Medical History: Reports:: Cancer (skin cancer), Chronic Obstructive Pulmonary Disease (COPD), Hyperlipidemia, Hypertension Denies:: Diabetes Mellitus Type 1, Diabetes Mellitus Type 2, Internal Pacemaker, MRSA, Seizures *Have you ever received a pneumonia vaccine?: No *Have you received a flu vaccine this season?: No Other Medical History: Reports: Cataracts Other Surgeries: Yes: Colonoscopy, Skin Cancer Excision, Tubal Ligation. No: Pacemaker Amputation: No Fractures: Yes - *Social History Last grade of school completed: High school graduate Smoking Status: Former smoker Tobacco Type: cigarettes #Yrs smoked (if former smoker): 20 Alcohol Intake: never *Occupational Status:: retired Housing: house Household Members: other *Travel in the last 8 weeks: None Family Hx:: Cancer, Hypertension Review of Systems - Constitutional Denies anorexia, Denies body ache(s) - Eyes Denies blind spots - ENT Denies abnormal hearing - *Cardiovascular Denies chest pain, Denies chest pain at rest - *Respiratory Reports shortness of breath (Chronic), Denies change in phlegm color, Denies chest congestion, Denies cough - *Gastrointestinal Reports vomiting, Denies abdominal pain - *Genitourinary Denies painful urination - *Musculoskeletal Reports joint pain (Bilateral hips) - Integumentary/Breasts Denies hair loss - *Neurologic Reports weakness, Denies localized weakness, Denies headache(s), Denies seizure-like activity Meds Home Medications Medication Instructions Recorded Confirmed Type RX: Amlodipine Besylate/Benazepril 1 cap PO DAILY 09/04/19 02/18/21 History [Lotrel 10-20 mg Capsule] RX: Furosemide [Furosemide 40MG 40 mg PO BID 08/30/20 02/18/21 History tAB*] RX: Ipratropium/Albuterol Sulfate 3 ml IH Q4HP PRN #60 ampul.neb 09/03/20 02/18/21 Rx [Iprat-Albut 0.5-3(2.5) mg/3 ml] Allergies Allergy/AdvReac Type Severity Reaction Status Date / Time No Known Allergies Allergy Verified 02/18/21 07:27 Exam Vital signs and Labs for Last 24 Hours: Temp Pulse Resp BP Pulse Ox 97.8 F 83 20 124/65 92 L 02/18/21 09:54 02/18/21 09:54 02/18/21 09:54 02/18/21 09:54 02/18/21 09:54 Laboratory Results - last 24 hr 02/18/21 05:30: WBC 6.7, RBC 3.51 L, Hgb 10.2 L, Hct 34.0 L, MCV 96.9, MCH 28.9, MCHC 29.9 L, RDW 13.2, Plt Count 192, MPV 6.9 L, Neut % (Auto) 67.2, Lymph % (Auto) 25.8, [place] % (Auto) 5.8, Eos % (Auto) 0.5, Baso % (Auto) 0.6, Neut # (Auto) 4.5, Lymph # (Auto) 1.7, [place] # (Auto) 0.4, Eos # (Auto) 0.0, Baso # (Auto) 0.0, ESR 119 H 02/18/21 05:30: Sodium 143, Potassium 5.6 H, Chloride 96 L, Carbon Dioxide 40 H, Anion Gap 12.6, BUN 33 H, Creatinine 1.00, Estimated Creat Clear 78, Estimated GFR 54 L, Est GFR ( Amer) 65, Glucose 121 H, Calcium 9.6, Total Bilirubin 0.3, AST 25, ALT 9 L, Alkaline Phosphatase 78, Troponin I < 0.01, C-Reactive Protein 5.2 H, NT
--- NOTE | 2021-02-18 14:56 | PC.NURSE ---
Did notify Dr. Barlow of pt's last abg when it was reported to the tag writer. CB is in reach. Pt is alert and oriented and able to make needs known verbally. VSS. NAD. Lungs cta/diminished, S1,S2. BS x 4. Denies pain at this time. Dr. Barlow stated pt could be taken off bipap and use a nasal cannula in order to eat and then reapply when done. Another abg is ordered for 1999. Mx continues.
[2021-02-18 15:04] LABS: Troponin I < 0.01 ng/ml (0.00-0.034)
--- NOTE | 2021-02-18 18:57 | PC.NURSE ---
Pt stated that she has been taking vitamins as well and she was unsure of doses.
[2021-02-18 20:14] LABS: ABG Base Excess 7.5 mmol/L (-2.4-2.3); ABG HCO3 34.9 mmhg (22.0-26.0); ABG Oxygen Saturation 97 % (90-100); ABG PH 7.24 mmol/L (7.35-7.45); ABG PO2 91.8 mmhg (80-100); ABG TCO2 37.4 mmhg (23-27)
[2021-02-18 20:15] LABS: Oxygen 45% %
[2021-02-18 20:16] LABS: Allen's Test Acceptable; PEEP 6; Pressure Support 12; Source Right Radial
[2021-02-18 20:21] LABS: ABG PCO2 83.1 mmhg (35.0-45.0)
[2021-02-19] VITALS (9 sets, daily range): BP systolic 126–185; BP diastolic 64–96; PULSE 59–87; RESP 17–21; TEMP 36.4–37.2; O2SAT 91–96; BMI 41.0
--- NOTE | 2021-02-19 04:05 | PC.NURSE ---
Pt alert and oriented. Able to appropriately answer questions and hold conversation. Lungs are diminished, pt has worn Bipap throughout the night. FiO2 at 35%, sats in the mid 90s. Bowel sounds x4, abd soft and nontender. Fin[place] in place draining clear yellow urine. Pt has not c/o pain throughout the shift. IV patent, NS @ 50. VSS, call light in reach, no concerns at this time.
[2021-02-19 07:23] LABS: Chloride 101 mmol/L (98-107); Sodium 139 mmol/L (136-145)
[2021-02-19 07:26] LABS: Anion Gap 11.2 mEq/L (5-15); Blood Urea Nitrogen 41 mg/dl (7-17); Carbon Dioxide 33 mmol/L (22.0-30.0); Creatinine Clearance Estimated 37 mL/min (50-200); Estimated Glomerular Filt Rate 48 ml/min (>60); GFR (African American) 58 ML/MIN (>60); Glucose 140 mg/dl (74-100)
[2021-02-19 07:27] LABS: Magnesium 1.9 mg/dl (1.6-2.3)
[2021-02-19 07:28] LABS: Potassium 6.2 mmoL/L (3.5-5.1)
[2021-02-19 07:57] LABS: Basophils % 0.1 % (0.1-2.0); Eosinophils % 0.2 % (0.1-12.0); Hematocrit 29.8 % (37.0-47.0); Hemoglobin 9.5 g/dL (12.2-16.2); Lymphocytes # 2.4 K/mm3 (0.7-4.5); Lymphocytes % 28.8 % (10-50); Mean Corpuscular Hemoglobin 29.2 pg (27.0-31.2); Mean Corpuscular Volume 91.2 fl (81-99); Mean Platelet Volume 7.4 fl (7.4-10.4); Monocytes # 0.3 K/mm3 (0.1-1.0); Monocytes % 3.3 % (1.7-9.3); Neutrophils # 5.6 K/mm3 (1.8-7.8); Neutrophils % 67.6 % (37.0-80.0); Platelet Count 146 K/mm3 (142-424); Red Blood Count 3.26 M/mm3 (4.20-5.40); Red Cell Distribution Width 13.5 % (11.5-17.5); White Blood Count 8.3 K/mm3 (4.8-10.8)
--- NOTE | 2021-02-19 08:01 | PC.NURSE ---
Dr. Barlow notified of critical K of 6.2 and has ordered meds, see mar.
--- NOTE | 2021-02-19 08:06 | HMH.ACPN2 ---
Internal Medicine - PN: Subj *Date: 02/19/21 *Time: 08:06 Interval history: Patient has no complaints this morning. She continues to denies shortness of breath. She has been transitioned to nasal cannula this morning. Exam Vital signs and Labs for Last 24 Hours: Temp Pulse Resp BP Pulse Ox 98.4 F 59 L 21 179/96 H 94 L 02/19/21 03:55 02/19/21 06:15 02/19/21 03:55 02/19/21 03:55 02/19/21 03:55 Laboratory Results - last 24 hr 02/18/21 05:30: C-Reactive Protein 5.2 H, NT-Pro-B Natriuret Pep 447, Procalcitonin 0.053 02/18/21 07:30: SARS-CoV-2 (PCR) Not detected, Influenza A Untype (PCR) Not detected, Influenza Type B (PCR) Not detected 02/18/21 08:00: Lactate < 0.5 L 02/18/21 11:00: Specimen Source Left brachial, O2 % 45%, ABG pH 7.17 L*, ABG pCO2 87.5 H, ABG pO2 77.7 L, ABG HCO3 31.3 H, ABG Total CO2 34.0 H, ABG O2 Saturation 95, ABG Base Excess 2.8 H, Angel Test Acceptable, Vent Rate 20, PEEP 6 02/18/21 11:15: Troponin I < 0.01 02/18/21 14:15: Troponin I < 0.01 02/18/21 20:00: Specimen Source Right radial, O2 % 45%, ABG pH 7.24 L*, ABG pCO2 83.1 H, ABG pO2 91.8, ABG HCO3 34.9 H, ABG Total CO2 37.4 H, ABG O2 Saturation 97, ABG Base Excess 7.5 H, Angel Test Acceptable, PEEP 6 02/18/21 : Urine RBC Occasional, Urine WBC 3-5, Ur Squamous Epith Cells 3-5, Urine Bacteria Trace 02/19/21 06:47: WBC 8.3, RBC 3.26 L, Hgb 9.5 L, Hct 29.8 L, MCV 91.2, MCH 29.2, MCHC 32.0, RDW 13.5, Plt Count 146, MPV 7.4, Neut % (Auto) 67.6, Lymph % (Auto) 28.8, [place] % (Auto) 3.3, Eos % (Auto) 0.2, Baso % (Auto) 0.1, Neut # (Auto) 5.6, Lymph # (Auto) 2.4, [place] # (Auto) 0.3, Eos # (Auto) 0.0, Baso # (Auto) 0.0 02/19/21 06:47: Sodium 139, Potassium 6.2 H*, Chloride 101, Carbon Dioxide 33 H, Anion Gap 11.2, BUN 41 H, Creatinine 1.10 H, Estimated Creat Clear 37, Estimated GFR 48 L, Est GFR ( Amer) 58 L, Glucose 140 H, Calcium 9.0, Magnesium 1.9 I & O for Last 24 hours: Intake & Output 02/16/21 02/17/21 02/18/21 02/19/21 11:59 11:59 11:59 11:59 Intake Total 630 / 630 Output Total 1175 / 1175 Balance -545 / -545 Weight 232 lb 6 oz 240 lb 2 oz - Constitutional no acute distress - *Routine Respiratory Exam Present: distant breath sounds, diminished air movement - *Routine Cardiovascular Exam Present: RRR - *Routine Abdominal Exam Present: soft, normoactive bowel sounds. Absent: tenderness Assessment and Plan (1) Acute respiratory failure with hypercapnia Status: Acute Category: Medical Code(s): J96.02 - Acute respiratory failure with hypercapnia (2) Acute exacerbation of chronic obstructive airways disease Status: Acute Category: Medical Code(s): J44.1 - Chronic obstructive pulmonary disease with (acute) exacerbation (3) Essential hypertension Status: Acute Category: Medical Code(s): I10 - Essential (primary) hypertension (4) Vomiting Status: Acute Category: Medical Code(s): R11.10 - Vomiting, unspecified (5) Chronic respiratory failure Status: Acute Qualifiers: Respiratory failure complication: hypoxia and hypercapnia Qualified Code(s): J96.11 - Chronic respiratory failure with hypoxia; J96.12 - Chronic respiratory failure with hypercapnia Category: Medical Code(s): J96.10 - Chronic respiratory failure, unspecified whether with hypoxia or hypercapnia (6) Hyperkalemia Status: Acute Category: Medical Code(s): E87.5 - Hyperkalemia - Assessment and plan all Dx Assessment and Plan for all problems:: 1. Continue supplemental oxygen with additional 24 hours of observation to observe for mental status changes to suggest hypercapnia 2. Patient be given calcium gluconate, IV Lasix, Kayexalate for her hyperkalemia. Repeat BMP this evening and again in the morning.
--- NOTE | 2021-02-19 17:56 | PC.NURSE ---
Pt is alert and oriented and able to make needs known. VSS. Pt remians on 3 L NC. Pt is upt to chair and has had a bath this shift. CB in reach and visitor in room. Lungs clear/diminished, s1,s2, abd soft and non tender, small umbilical hernia noted, pt denies pain. Bruises to BUE. Indwelling cath in place and pt has had good urinary output. Have informed pt not to get up at this time without assistance,verbalizes understanding. Mx continues.
[2021-02-19 18:19] LABS: Chloride 93 mmol/L (98-107)
[2021-02-19 18:20] LABS: Potassium 4.9 mmoL/L (3.5-5.1); Sodium 139 mmol/L (136-145)
[2021-02-19 18:23] LABS: Anion Gap 11.9 mEq/L (5-15); Blood Urea Nitrogen 42 mg/dl (7-17); Calcium 9.3 mg/dl (8.4-10.2); Carbon Dioxide 39 mmol/L (22.0-30.0); Creatinine Clearance Estimated 29 mL/min (50-200); Estimated Glomerular Filt Rate 36 ml/min (>60); GFR (African American) 44 ML/MIN (>60); Glucose 222 mg/dl (74-100)
--- NOTE | 2021-02-19 19:09 | PC.NURSE ---
SPUTUM WAS INDUCED. PT WAS UNABLE TO COUGH ANYTHING UP. PT WAS LEFT SPUTUM CUP AT BEDSIDE.
[2021-02-20] VITALS: BP 183/69; PULSE 77; RESP 18; TEMP 36.6; O2SAT 93
[2021-02-20 03:49] VITALS: BP 153/73; PULSE 77; RESP 18; TEMP 36.5; O2SAT 95
--- NOTE | 2021-02-20 04:21 | PC.NURSE ---
shift summary pt is alert and oriented X4. pt lung sounds are clear but diminished with sats maintained 90% or above on 3L via NC. RT had placed bipap on pt but after a few minutes the pt decided she didnt want to wear it and the bipap was taken off. pt did well with the 3L via NC for duration of shift. pt denies any pain, nausea, vomiting, or diarrhea. no acute changes will continue to monitor.
[2021-02-20 05:07] VITALS: BMI 37.5
[2021-02-20 06:17] VITALS: PULSE 74; PULSE 76
[2021-02-20 06:37] LABS: Blood Urea Nitrogen 47 mg/dl (7-17); Calcium 8.8 mg/dl (8.4-10.2); Chloride 96 mmol/L (98-107); Creatinine Clearance Estimated 62 mL/min (50-200); Estimated Glomerular Filt Rate 44 ml/min (>60); GFR (African American) 53 ML/MIN (>60); Glucose 158 mg/dl (74-100); Potassium 4.5 mmoL/L (3.5-5.1); Sodium 140 mmol/L (136-145)
[2021-02-20 06:43] LABS: Anion Gap 9.5 mEq/L (5-15); Carbon Dioxide 39 mmol/L (22.0-30.0)
--- NOTE | 2021-02-20 07:20 | HMH.DCSUM ---
General - General Admission date:: 02/18/21 Discharge date: 02/20/21 HPI HPI: 75-year-old female with severe COPD, oxygen dependent at home, presented to the emergency department with family due to depressed level of consciousness. Patient's son reports he had difficulty awakening the patient early this morning. Patient had been ill the day prior with multiple episodes of vomiting. Patient and family are unaware of any fevers or chills. Patient denies any worsening shortness of breath or cough over the last 24 hours. Patient supplemental oxygen had remained on 3 L/min at home in the ER patient was found acute hypercapnic respiratory failure. Patient was placed on BiPAP and admitted. Since admission to the [facility] floor patient's level of consciousness has gradually improved and patient is now awake and alert. Blood gas has shown improvement in the hypercapnia although acidosis persists. Patient's arterial oxygen level is appropriate. Hospital Course Hospital Course: Patient was admitted and spent the first 24 hours of admission on BiPAP with brief removal to allow for eating. Patient's mental status improved and after 24 hours she was transitioned to her home flow rate of 3 L/min via nasal cannula of supplemental oxygen. Patient was observed for an additional 24 hours. She showed no further signs of respiratory ailments or CO2 retention. Patient mentating well. She was continued on Solu-Medrol and duo nebs for COPD exacerbation. On the morning of February 20 patient was discharged home. She will continue a course of steroids and antibiotics. Patient will follow up in the office next week. Patient developed hyperkalemia during hospitalization treated with IV Lasix, calcium gluconate, 2 doses of Kayexalate. Potassium peaked at 6.2 and by the following day had returned to normal at 4.9 Objective Vital signs: Temp Pulse Resp BP Pulse Ox 97.7 F 74 18 153/73 H 95 02/20/21 03:49 02/20/21 06:17 02/20/21 03:49 02/20/21 03:49 02/20/21 03:49 no acute distress - *Routine Respiratory Exam Present: distant breath sounds. Absent: wheezes, crackles - *Routine Cardiovascular Exam Present: RRR - *Routine Abdominal Exam Present: soft, normoactive bowel sounds. Absent: tenderness Results Labs on day of discharge: Labs from last 24 hours 02/20/21 02/19/21 02/19/21 05:46 17:08 06:47 WBC RBC Hgb Hct MCV MCH MCHC RDW Plt Count MPV Neut % (Auto) Lymph % (Auto) [place] % (Auto) Eos % (Auto) Baso % (Auto) Neut # (Auto) Lymph # (Auto) [place] # (Auto) Eos # (Auto) Baso # (Auto) Sodium 140 139 139 Potassium 4.5 4.9 D 6.2 H* Chloride 96 L 93 L 101 Carbon Dioxide 39 H 39 H 33 H Anion Gap 9.5 11.9 11.2 BUN 47 H 42 H 41 H Creatinine 1.20 H 1.40 H D 1.10 H Estimated Creat Clear 62 29 37 Estimated GFR 44 L 36 L 48 L Est GFR ( Amer) 53 L D 44 L D 58 L Glucose 158 H D 222 H D 140 H Calcium 8.8 9.3 9.0 Magnesium 1.9 02/19/21 06:47 WBC 8.3 RBC 3.26 L Hgb 9.5 L Hct 29.8 L MCV 91.2 MCH 29.2 MCHC 32.0 RDW 13.5 Plt Count 146 MPV 7.4 Neut % (Auto) 67.6 Lymph % (Auto) 28.8 [place] % (Auto) 3.3 Eos % (Auto) 0.2 Baso % (Auto) 0.1 Neut # (Auto) 5.6 Lymph # (Auto) 2.4 [place] # (Auto) 0.3 Eos # (Auto) 0.0 Baso # (Auto) 0.0 Sodium Potassium Chloride Carbon Dioxide Anion Gap BUN Creatinine Estimated Creat Clear Estimated GFR Est GFR ( Amer) Glucose Calcium Magnesium DS: Diagnosis - Discharge Diagnosis (1) Acute respiratory failure with hypercapnia Status: Acute (2) Acute exacerbation of chronic obstructive airways disease Status: Acute (3) Essential hypertension Status: Acute (4) Vomiting Status: Acute (5) Chronic respiratory failure Status: Acute (6) Hyperkalemia Status: Acute Discharge Plan - P
[2021-02-20 08:00] VITALS: BP 142/76; PULSE 68; RESP 18; TEMP 36.6; O2SAT 3; O2SAT 95
--- NOTE | 2021-02-20 10:36 | SW/DCPLANNER ---
PATIENT IS DISCHARGING HOME TODAY, SHE HAS A FOLLOW UP APPT FOR FEBRUARY 27 @10:[address] SIERRA OFFICE..I HAVE ALSO EXPLORED FOR HER TO [email or web address].. IF APPROVED IT SHOULD BE DELIVERED TO HER HOME.. DAUGHTER CAME AND PICKED PATIENT UP....
== END 2021-02-20 10:35 | disposition home or self-care (01) | DRG 189 ==
LOC: ER 06:21 → 2ND 07:47
PROVIDERS: Admitting Provider Family Medicine; Emergency Provider Emergency Medicine; PCP Family Medicine; Visit Provider Family Medicine
DX: J96.02 Acute respiratory failure with hypercapnia (principal); J44.1 Chronic obstructive pulmonary disease with (acute) exacerbation; J96.01 Acute respiratory failure with hypoxia; Z99.81 Dependence on supplemental oxygen; J96.12 Chronic respiratory failure with hypercapnia; J96.11 Chronic respiratory failure with hypoxia; R11.10 Vomiting, unspecified; I10 Essential (primary) hypertension; Z87.891 Personal history of nicotine dependence; E78.5 Hyperlipidemia, unspecified; Z85.828 Personal history of other malignant neoplasm of skin; E87.5 Hyperkalemia
CPT/HCPCS: 36415; 71045; 80048; 80053; 81001; 82150; 82803; 83605; 83690; 83735; 83880; 84145; 84484; 85025; 85651; 86140; 87040; 93005; 93306; 94640; 94660; 94760; 94761; 96365; 96367; 96375; 99285; 99291; J1956; J2405; U0003

== ENCOUNTER → 2021-02-28 09:17 | Outpatient (CLI) | payer MEDICARE, MEDICAID, SELFPAY | PROVIDERS: Visit Provider Ophthalmology | DX: Z01.812 Encounter for preprocedural laboratory examination (principal); Z20.822 Contact with and (suspected) exposure to COVID-19 | CPT/HCPCS: U0003 ==

== ENCOUNTER 2021-03-03 06:06 | Day surgery (SDC) | payer MEDICARE, MEDICAID, SELFPAY ==
[2021-02-25 10:38] VITALS: BMI 39.4
[2021-03-03] VITALS (7 sets, daily range): BP systolic 137–183; BP diastolic 50–80; PULSE 71–88; RESP 18–22; TEMP 36.6; O2SAT 96–100
== END 2021-03-03 08:21 | disposition home or self-care (01) ==
LOC: OR 06:08
PROVIDERS: PCP Family Medicine; Visit Provider Ophthalmology
DX: H25.813 Combined forms of age-related cataract, bilateral (principal); I10 Essential (primary) hypertension; J44.9 Chronic obstructive pulmonary disease, unspecified
CPT/HCPCS: 66984; V2632

== ENCOUNTER 2021-03-07 13:18 | Emergency (ER) | payer MEDICARE, MEDICAID, SELFPAY ==
[2021-03-07 13:19] VITALS: BP 170/63; PULSE 67; RESP 22; TEMP 36.9; O2SAT 98; BMI 39.4
--- NOTE | 2021-03-07 13:44 | XR_ITS ---
PROCEDURE INFORMATION: Exam: XR Lumbosacral Spine Exam date and time: 03/07/2021 1:44 PM Age: 75 years old Clinical indication: Low back pain; Additional info: Lbp TECHNIQUE: Imaging protocol: XR of the lumbosacral spine. Views: 2 or 3 views. COMPARISON: CT ABDOMEN PELVIS W CON 09/02/2019 12:23 PM FINDINGS: Bones/joints: Scoliosis is seen throughout the spine. Wedge compression deformity of the L3 vertebra is seen which could be acute or chronic. Multilevel degenerative changes which are moderate to severe are demonstrated. No acute fracture or malalignment is definitely seen. Sacroiliac joints are unremarkable as visualized. Soft tissues: Unremarkable. Vasculature: Vascular calcifications are seen. IMPRESSION: Age indeterminate compression deformity of L3 likely related to chronic changes although these changes have occurred since the CT scan of the abdomen and pelvis dated 09/02/2019. Consider MRI correlation if clinically indicated. Bone scan correlation could also be obtained. Significant spondylosis and mild scoliosis.
--- NOTE | 2021-03-07 13:56 | HMH.EDGENADL ---
ED Disposition Clinical Impression: Lumbago Qualifiers: Chronicity: acute Back pain laterality: bilateral Sciatica presence: without sciatica Qualified Code(s): M54.5 - Low back pain Disposition: Home, Self-Care Condition on Discharge: Fair Instructions: DI for Chronic Pain -- Adult Prescriptions: Cyclobenzaprine HCl [Cyclobenzaprine 5mg Tab] 5 mg PO Q8HP PRN #30 tab PRN Reason: pain/spasm Transmission [facility] Ketorolac Tromethamine [Toradol 10mg tablet] 10 mg PO Q6H 5 Days #20 tab Transmission Status: Pending to [facility] Referrals: Lexx Barlow MD [Primary Care Provider] - - Critical Care Critical Care Time: No Attestation: On 03/07/21, the high probability of a clinically significant, sudden or life threatening deterioration of the following system(s) required my full and direct attention, intervention and personal management. The time I documented below is in addition to time spent performing reported procedures but includes the following listed in this critical care notation. Medical Decision Making - Medical Records Medical records reviewed: Yes: I reviewed the patient's medical records. - [place] Inquiry Pt receiving controlled substance: No Vital Signs: 03/07/21 13:19 Temperature 98.4 F Temperature Source Oral Pulse Rate [Left] 67 Respiratory Rate 22 Blood Pressure [Right Arm] 170/63 H Blood Pressure Mean [Right Arm] 98 Blood Pressure Source [Right Arm] Automatic Cuff Blood Pressure Position [Right Arm] Supine 02 Sat by Pulse Oximetry 98 Orders (Tests/Meds): ED MEDICATIONS Discontinued Medications Generic Name Dose Route Start Last Admin Trade Name Freq PRN Reason Stop Dose Admin Ketorolac Tromethamine 60 mg 03/07/21 13:45 03/07/21 13:49 Ketorolac 60mg/2ml Vial IM 03/07/21 13:46 60 mg ONCE ONE Administration Orphenadrine Citrate 60 mg 03/07/21 13:45 03/07/21 13:49 Orphenadrine Citrate 60mg/2ml Vial IM 03/07/21 13:46 60 mg ONCE ONE Administration ORDERS Category Date Time Status Lumbar spine XR 2-3 views [XR lumbar spine 2-3V] Stat Exams 03/07/21 13:44 Taken - Radiology Data #1 Image(s): L-Spine Image Reviewed: Yes I reviewed the patient's radiology results old L3 compression fx; moderate spondylosis throughout L-spine General Adult HPI - General Chief complaint: PAIN Stated complaint: hip & back hurting Time Seen by Provider: 03/07/21 13:45 Mode of Arrival: Wheelchair Source of Information: Patient Limitations: Physical Limitations Description of Symptoms (Recalled from ER Triage Doc. by RN): PATIENT COMPLAINS OF LOWER BACK PAIN X 1 YEAR. PATIENT STATES THAT ITS CONSTANT PRESSURE AND RADIATES DOWN BILAT HIPS. - History of Present Illness HPI narrative: Is a 75-year-old female presents with low back pain. Patient reports pain is been ongoing intermittent over the last year. Worse over the last 2 weeks. Seen by her PCP which recommended her to go to the ER and get an x-ray . Pain rated at 8/10 in intensity. Patient reports pain is sharp and constant and located in the low back bilaterally. Patient denies any radiation of her pain. Flexion and extension make the pain worse. She is denies any numbness or tingling. - Related Data Home Medications Medication Instructions Recorded Confirmed Amlodipine Besylate/Benazepril 1 cap PO DAILY 09/04/19 03/03/21 [Lotrel 10-20 mg Capsule] Furosemide [Furosemide 40MG tAB*] 40 mg PO BID 08/30/20 03/03/21 Previous Rx's Medication Instructions Recorded Ipratropium/Albuterol Sulfate 3 ml IH Q4HP PRN #60 ampul.neb 09/03/20 [Iprat-Albut 0.5-3(2.5) mg/3 ml] Cyclobenzaprine HCl 5 mg PO Q8HP PRN #30 tab 03/07/21 [Cyclobenzaprine 5mg Tab] Ketorolac Tromethamine [Toradol 10 mg PO Q6H 5 Days #20 tab 03/07/21 10mg tablet] Allergies Allergy/AdvReac Type Severity Reaction Status Date / Time No Known Allergies Allergy
[2021-03-07 14:15] VITALS: BP 134/74; PULSE 78; RESP 18; TEMP 36.6; O2SAT 94
== END 2021-03-07 14:16 | disposition home or self-care (01) ==
PROVIDERS: Emergency Provider Emergency Medicine; PCP Family Medicine
DX: M54.5 Low back pain (principal); J44.9 Chronic obstructive pulmonary disease, unspecified; E78.5 Hyperlipidemia, unspecified; I10 Essential (primary) hypertension; Z79.899 Other long term (current) drug therapy
CPT/HCPCS: 72100; 96372; 99282

== ENCOUNTER 2021-04-27 11:08 | Emergency (ER) | payer MEDICARE, MEDICAID, SELFPAY ==
[2021-04-27 11:08] VITALS: BP 171/62; PULSE 71; RESP 25; TEMP 36.9; O2SAT 98; BMI 38.2
--- NOTE | 2021-04-27 11:15 | HMH.EDSOB ---
ED Disposition Clinical Impression: COPD (chronic obstructive pulmonary disease) Qualifiers: COPD type: COPD with acute lower respiratory infection Qualified Code(s): J44.0 - Chronic obstructive pulmonary disease with (acute) lower respiratory infection Disposition: Home, Self-Care Condition on Discharge: Fair Instructions: DI for Chronic Obstructive Pulmonary Disease, DI for Emphysema Additional Instructions: Please follow-up with your primary care doctor if you are not better in about 3 days. Return to the emergency department if you feel worse in any way. Prescriptions: Azithromycin [Z-Matheus 250mg Tab] 250 mg PO DIRECTED #6 tab Transmission Status: Pending to [facility] Referrals: Provider,Referral, [Primary Care Provider] - - Critical Care Critical Care Time: No Attestation: On , the high probability of a clinically significant, sudden or life threatening deterioration of the following system(s) required my full and direct attention, intervention and personal management. The time I documented below is in addition to time spent performing reported procedures but includes the following listed in this critical care notation. Medical Decision Making - Medical Records Medical records reviewed: Yes: I reviewed the patient's medical records. - [place] Inquiry Pt receiving controlled substance: No Vital Signs: 04/27/21 11:08 04/27/21 12:01 04/27/21 12:31 Temperature 98.4 F Temperature Source Oral Pulse Rate 66 64 Pulse Rate [Right Radial] 71 Respiratory Rate 25 H 22 24 Blood Pressure 137/60 107/40 L Blood Pressure [Right Arm] 171/62 H Blood Pressure Mean [Right Arm] 98 Blood Pressure Source [Right Arm] Automatic Cuff Blood Pressure Position [Right Arm] Sitting 02 Sat by Pulse Oximetry 98 99 98 Oxygen Delivery Method Nasal Cannula Oxygen Flow Rate (LPM) 4 04/27/21 13:02 Temperature Temperature Source Pulse Rate 68 Pulse Rate [Right Radial] Respiratory Rate 26 H Blood Pressure 137/63 Blood Pressure [Right Arm] Blood Pressure Mean [Right Arm] Blood Pressure Source [Right Arm] Blood Pressure Position [Right Arm] 02 Sat by Pulse Oximetry 99 Oxygen Delivery Method Oxygen Flow Rate (LPM) - Lab Data Lab results reviewed: Yes: I reviewed the patient's lab results. Lab Results 04/27/21 11:25: WBC 6.5, RBC 3.64 L, Hgb 10.6 L, Hct 35.9 L, MCV 98.5, MCH 29.1, MCHC 29.5 L, RDW 13.2, Plt Count 221, MPV 7.4, Neut % (Auto) 46.2, Lymph % (Auto) 45.5, [place] % (Auto) 4.4, Eos % (Auto) 3.3, Baso % (Auto) 0.7, Neut # (Auto) 3.0, Lymph # (Auto) 2.9, [place] # (Auto) 0.3, Eos # (Auto) 0.2, Baso # (Auto) 0.1 04/27/21 11:25: Sodium 141, Potassium 5.2 H, Chloride 94 L, Carbon Dioxide 39 H, Anion Gap 13.2, BUN 18 H, Creatinine 0.90, Estimated Creat Clear 75, Estimated GFR 61, Est GFR ( Amer) 73, Glucose 119 H, Calcium 9.7, Total Bilirubin 0.3, AST 26, ALT 12, Alkaline Phosphatase 97, Troponin I < 0.01, NT-Pro-B Natriuret Pep 188, Total Protein 7.0, Albumin 3.8, Globulin 3.2, Albumin/Globulin Ratio 1.2 04/27/21 11:25: SARS-CoV-2 (PCR) Not detected, Influenza A Untype (PCR) Not detected, Influenza Type B (PCR) Not detected Result diagrams: 04/27/21 11:25 04/27/21 11:25 Orders (Tests/Meds): ORDERS Category Date Time Status Troponin I Q3H Lab 04/27/21 14:30 Ordered - Radiology Data #1 Image(s): Chest Image Reviewed: Yes I reviewed the patient's radiology image, Yes I have reviewed radiologist's interpretation Preliminary Findings: Abnormal (infiltrate vs atelectasis) - ECG Data Tracing #1 I reviewed this ECG and interpreted as documented below: His ECG was done at 11:27 AM. It shows a normal sinus rhythm with a rate of 67 bpm. There is no acute ischemia. There are Q waves in the septal region V1 V2. No evidence of dysrhythmias. Normal Sinus Rhythm: Yes ECG compared to prior tracings: there are no significant changes (August 04, 2020) Medical D
--- NOTE | 2021-04-27 11:18 | XR_ITS ---
PROCEDURE INFORMATION: Exam: XR Chest Exam date and time: 04/27/2021 11:18 AM Age: 75 years old Clinical indication: Dyspnea TECHNIQUE: Imaging protocol: XR of the chest. Views: 1 view. COMPARISON: CR XR CHEST PORTABLE 02/18/2021 7:25 AM FINDINGS: Lungs: Opacities in the left mid lung and left base may represent atelectasis or pneumonia.. Pleural spaces: Unremarkable. No pleural effusion. No pneumothorax. Heart/Mediastinum: Stable cardiac silhouette Diaphragm: Stable Elevated right hemidiaphragm Bones/joints: Degenerative changes in glenohumeral joints IMPRESSION: Opacities in the left mid lung and left base may represent atelectasis or pneumonia..
--- NOTE | 2021-04-27 11:27 | ECG_ITS ---
APPROVED REPORT Exam: Resting ECG HR:67 bpm ECG Measurements Heart Rate 67 AXES AZ 182 P 40 QRSd 84 QRS -6 QT 374 T 44 QTc 395 Conclusion Normal sinus rhythm Septal infarct, age undetermined Abnormal ECG Electronically signed by : Lexx Moore MD 04/27/2021 20:37:42
--- NOTE | 2021-04-27 11:37 | PC.NURSE ---
Rad at bedside
[2021-04-27 11:38] LABS: Coronavirus 19, PCR Not Detected (NotDetected); Influenza A, PCR Not Detected (NotDetected); Influenza B, PCR Not Detected (NotDetected)
[2021-04-27 11:42] LABS: Chloride 94 mmol/L (98-107); Potassium 5.2 mmoL/L (3.5-5.1); Sodium 141 mmol/L (136-145)
[2021-04-27 11:43] LABS: Basophils # 0.1 K/mm3 (0-0.2); Basophils % 0.7 % (0.1-2.0); Eosinophils # 0.2 K/mm3 (0.0-0.4); Eosinophils % 3.3 % (0.1-12.0); Hematocrit 35.9 % (37.0-47.0); Hemoglobin 10.6 g/dL (12.2-16.2); Lymphocytes # 2.9 K/mm3 (0.7-4.5); Lymphocytes % 45.5 % (10-50); Mean Corpuscular HGB Conc 29.5 g/dL (31.8-35.4); Mean Corpuscular Hemoglobin 29.1 pg (27.0-31.2); Mean Corpuscular Volume 98.5 fl (81-99); Mean Platelet Volume 7.4 fl (7.4-10.4); Monocytes # 0.3 K/mm3 (0.1-1.0); Monocytes % 4.4 % (1.7-9.3); Neutrophils % 46.2 % (37.0-80.0); Platelet Count 221 K/mm3 (142-424); Red Blood Count 3.64 M/mm3 (4.20-5.40); Red Cell Distribution Width 13.2 % (11.5-17.5); White Blood Count 6.5 K/mm3 (4.8-10.8)
[2021-04-27 11:45] LABS: Alanine Aminotransferase 12 U/L (12-78); Albumin Level 3.8 g/dl (3.5-5.0); Albumin/Globulin Ratio 1.2 (1.1-1.8); Alkaline Phosphatase 97 U/L (38-126); Aspartate Amino Transferase 26 U/L (14-36); Bilirubin,Total 0.3 mg/dl (0.2-1.3); Blood Urea Nitrogen 18 mg/dl (7-17); Calcium 9.7 mg/dl (8.4-10.2); Creatinine Clearance Estimated 75 mL/min (50-200); Estimated Glomerular Filt Rate 61 ml/min (>60); GFR (African American) 73 ML/MIN (>60); Globulin 3.2 g/dL (1.3-3.2); Glucose 119 mg/dl (74-100)
[2021-04-27 11:52] LABS: Anion Gap 13.2 mEq/L (5-15); Carbon Dioxide 39 mmol/L (22.0-30.0)
[2021-04-27 11:56] LABS: NT Pro Brain Natriuretic Pep. 188 pg/mL (0-450)
[2021-04-27 12:00] LABS: Troponin I < 0.01 ng/ml (0.00-0.034)
[2021-04-27 12:01] VITALS: BP 137/60; PULSE 66; RESP 22; O2SAT 99
[2021-04-27 12:31] VITALS: BP 107/40; PULSE 64; RESP 24; O2SAT 98
[2021-04-27 13:02] VITALS: BP 137/63; PULSE 68; RESP 26; O2SAT 99
[2021-04-27 13:31] VITALS: BP 140/63; PULSE 68; RESP 24; O2SAT 98
[2021-04-27 14:08] VITALS: BP 131/89; PULSE 86; RESP 18; TEMP 36.7; O2SAT 99
== END 2021-04-27 14:11 | disposition home or self-care (01) ==
PROVIDERS: Emergency Provider Emergency Medicine
DX: J44.0 Chronic obstructive pulmonary disease with (acute) lower respiratory infection (principal); E78.5 Hyperlipidemia, unspecified; I10 Essential (primary) hypertension; Z20.822 Contact with and (suspected) exposure to COVID-19
CPT/HCPCS: 71045; 80053; 83880; 84484; 85025; 93005; 96374; 99283; U0003

== ENCOUNTER 2021-07-12 10:35 | Emergency (ER) | payer MEDICARE, MEDICAID, SELFPAY ==
--- NOTE | 2021-07-12 10:40 | PC.NURSE ---
pt arrived per ems to [facility] at 1034-acls in process. ems reports administering 2mg epi in route. per ems, family states pt family last spoke with pt last night at around 7-8pm. pt son went to visit today and found pt in her recliner pulseless and not breathing. ems was toned to the scene at 0952. ems reports initiating cpr on arrival to pts home. ems was unable to revive pulse in route to [facility]. 1035- agonal breathing and asystole 1036-efforts terminated per md and time of was called
--- NOTE | 2021-07-12 10:50 | HMH.EDGENADL ---
ED Disposition Clinical Impression: Cardiac arrest Disposition: Condition on Discharge: Referrals: Provider,Referral, [Primary Care Provider] - - Critical Care Critical Care Time: No Attestation: On 07/12/21, the high probability of a clinically significant, sudden or life threatening deterioration of the following system(s) required my full and direct attention, intervention and personal management. The time I documented below is in addition to time spent performing reported procedures but includes the following listed in this critical care notation. Probable Cause of : Cardiac arrest Medical Decision Making - [place] Inquiry Pt receiving controlled substance: No Medical Decision Narrative: Electron Beam Welding Machine Operator felt that the patient's tube had become dislodged during transport and removed her LMA on arrival. [id number] ventilations and CPR were continued while she was connected to the emergency department school lunch monitor which showed that she was still in asystole with a very rare agonal beat which then deteriorated to complete asystole. At this point I felt further resuscitative efforts were not indicated. The call was received to 911 at 9:53 AM which is more than 30 minutes prior to arrival here with documented asystole for over 20 minutes. She was pronounced . 10:50 AM: I spoke with family. They confirm that she was last seen alive last night. She was found this morning unresponsive, apneic and pulseless and cool sitting in a chair where she normally sleeps. General Adult HPI - General Stated complaint: cardiac arrest Time Seen by Provider: 07/12/21 10:35 - History of Present Illness HPI narrative: Brought in by ambulance in cardiac arrest with CPR in progress. EMS reports that the patient was last seen alive last night. This morning family found her unresponsive and apneic and pulseless. Family called 911, but did not start CPR. CPR was started by EMS upon arrival, she was found to be apneic, pulseless, and into asystole. She had an LMA placed and was given 2 doses of epinephrine prior to arrival. She remained in asystole the entire transport and arrives in asystole. - Related Data Home Medications Medication Instructions Recorded Confirmed Amlodipine Besylate/Benazepril 1 cap PO DAILY 09/04/19 06/24/21 [Lotrel 10-20 mg Capsule] Furosemide [Furosemide 40MG tAB*] 40 mg PO BID 01/09/21 11/03/21 Previous Rx's Medication Instructions Recorded Ipratropium/Albuterol Sulfate 3 ml IH Q4HP PRN #60 ampul.neb 09/03/20 [Iprat-Albut 0.5-3(2.5) mg/3 ml] Cyclobenzaprine HCl 5 mg PO Q8HP PRN #30 tab 03/07/21 [Cyclobenzaprine 5mg Tab] Ketorolac Tromethamine [Toradol 10 mg PO Q6H 5 Days #20 tab 03/07/21 10mg tablet] Allergies Allergy/AdvReac Type Severity Reaction Status Date / Time No Known Allergies Allergy Verified 06/24/21 09:08 [facility] History - Hepatitis A Screen Attestation statement:: This patient has been screened for Hepatitis A risk factors. I have reviewed the patient's past medical history: Yes Medical History: Reports:: Cancer, Chronic Obstructive Pulmonary Disease (COPD), Hyperlipidemia, Hypertension Denies:: Diabetes Mellitus Type 1, Diabetes Mellitus Type 2, Internal Pacemaker, MRSA, Seizures Other Medical History: Reports: Cataracts Other Surgeries: Yes: Colonoscopy, Skin Cancer Excision, Tubal Ligation. No: Pacemaker Amputation: No Fractures: Yes - Social History Smoking Status: Never smoker Tobacco Type: cigarettes #Yrs smoked (if former smoker): 20 Alcohol Intake: never Occupational Status: retired Housing: house Household Members: significant other Family Hx:: Cancer, Hypertension ROS Obtained: Yes unobtainable due to mental status Physical Exam - General General appearance: other (Unresponsive. Pupils fixed and midposition. Very pale. Apneic and pulseless.) - Head Head exam: atraumatic, normocephalic - Eye Eye exa
--- NOTE | 2021-07-12 11:26 | PC.NURSE ---
called [facility] and spoke with yisel rojo who stated pt was not a candidate for organ donation and she was closing the case. case #[id number]
--- NOTE | 2021-07-12 11:49 | PC.NURSE ---
on site property manager present at ed to speak with family
[2021-07-12 14:22] VITALS: BP 0/0; PULSE 0; RESP 0; TEMP -17.7; TEMP 0
== END 2021-07-12 14:24 | disposition expired ==
PROVIDERS: Emergency Provider Emergency Medicine
DX: I46.9 Cardiac arrest, cause unspecified (principal); J44.9 Chronic obstructive pulmonary disease, unspecified; I10 Essential (primary) hypertension; E78.5 Hyperlipidemia, unspecified
CPT/HCPCS: 99282